=== PATIENT | female | born 1975 | race Caucasian/White ===

== ENCOUNTER 2016-10-01 09:45 | Outpatient (CLI) | payer BC ==
[2016-10-01] MEDS: DIPYRIDAMOLE 50 MG/10 ML VIAL IVP ONE (11:26)
== END 2016-10-01 09:46 | disposition home or self-care (01) ==
DX: R07.9 Chest pain, unspecified (principal); I21.3 ST elevation (STEMI) myocardial infarction of unspecified site; Z72.0 Tobacco use; I25.9 Chronic ischemic heart disease, unspecified; R94.39 Abnormal result of other cardiovascular function study
CPT/HCPCS: 78452; 93017; A9500; J1245

== ENCOUNTER 2016-10-05 16:21 | Emergency (ER) | payer BC ==
[2016-10-05] MEDS ORDERED: HEPARIN 5,000 UNIT/ML VIAL ONE (17:02)
[2016-10-05] MEDS ORDERED: METOPROLOL 5 MG/5 ML VIAL IVP ONE (17:02)
[2016-10-05] MEDS ORDERED: ASPIRIN CHEW 81 MG TABLET ONE ×2 (17:02→17:15)
[2016-10-05] MEDS ORDERED: HEPARIN 25,000 UNITS/500 ML 500 ML IV ONE (17:02)
[2016-10-05] MEDS ORDERED: NITROGLYCERIN 50 MG/250 ML 250 ML IV ONE (17:03)
--- NOTE | 2016-10-05 17:05 | ED Physician Documentation ---
PD HPI CHEST PAIN - Stated complaint Stated Complaint: CHEST PX - Chief complaint Chief Complaint: Cardiac - History obtained from History obtained from: Patient - History of Present Illness Timing - onset: Other (This is a 41-year-old woman who for the last month has been having intermittent sometimes exertional central chest pain radiating under the left breast associated with exertional shortness of breath. She's been evaluated and had a normal chest x-ray, then had a stress test on Wednesday, 3 days ago showing "moderate size anterior wall infarct extending anterolateral near the apex and anteroseptal near the mid ventricle to the base. Apical lateral patrick-infarct ischemia, left ventricular ejection fraction estimated at 42%. She has had chest pain as well today, contacted her doctor who referred her here.) Review of Systems Ten Systems: 10 systems reviewed and negative Constitutional: reports: Reviewed and negative Nose: reports: Reviewed and negative Cardiac: reports: Chest pain / pressure, Palpitations, Pedal edema. denies: Calf pain Respiratory: denies: Cough GI: denies: Abdominal Pain PD PAST MEDICAL HISTORY - Past Medical History Cardiovascular: None Respiratory: None Neuro: Peripheral neuropathy, Other Endocrine/Autoimmune: Other GI: GERD, Chronic diarrhea, Hemorrhoids, Other : None HEENT: None Psych: Anxiety, Claustrophobia Musculoskeletal: Osteoarthritis, Chronic back pain, Other Derm: Other drug resistant infections - Past Surgical History General: Cholecystectomy Ortho: Carpal Tunnel surgery, Spine surgery, Other - Present Medications Home Medications: Ambulatory Orders Medication Instructions Recorded Confirmed Cyclobenzaprine [Flexeril] 10 mg PO TID PRN 12/13/15 10/05/16 Diazepam 10 mg PO TID 12/13/15 10/05/16 Gabapentin 400 mg PO TID 12/13/15 10/05/16 raNITIdine [Zantac] 150 mg PO DAILY 12/13/15 10/05/16 Omeprazole 20 mg PO DAILY 04/14/16 10/05/16 - Allergies Allergies/Adverse Reactions: Allergies Allergy/AdvReac Type Severity Reaction Status Date / Time Penicillins Allergy Rash Verified 10/05/16 16:49 - Social History Smoking Status: Current every day smoker - Family History Family history: reports: Non contributory PD ED PE NORMAL - Vitals Vital signs reviewed: Yes (hypertensive, tachycardic) - General General: Alert and oriented X 3, No acute distress, Other (obese) - HEENT HEENT: PERRL, EOMI - Neck Neck: Supple, no meningeal sign, No bony TTP - Cardiac Cardiac: RRR, No murmur - Respiratory Respiratory: No respiratory distress, Clear bilaterally - Abdomen Abdomen: Soft, Non tender - Derm Derm: Normal color, Warm and dry - Extremities Extremities: No edema, No calf tenderness / cord - Neuro Neuro: Alert and oriented X 3, Normal speech - Psych Psych: Normal mood, Normal affect Results - Vitals Vitals: Vital Signs - 24 hr 10/05/16 10/05/16 10/05/16 16:26 16:49 17:32 Temperature 36.6 C Heart Rate 108 H 106 H 84 Respiratory 20 16 18 Rate Blood Pressure 144/96 H 143/106 H 129/89 H O2 Saturation 97 94 95 10/05/16 17:54 Temperature Heart Rate 79 Respiratory 20 Rate Blood Pressure 130/90 H O2 Saturation 93 Oxygen O2 Source Room air - EKG (time done) 1638 Rate: Rate (enter#) (101) Rhythm: Sinus tachycardia [place]: Normal Intervals: Normal MT QRS: Normal Ischemia: Normal ST segments Computer interpretation: Agree with computer - Labs Labs: Laboratory Tests 10/05/16 10/05/16 10/05/16 16:55 16:55 16:55 WBC 12.1 H RBC 5.15 Hgb 14.7 Hct 44.9 MCV 87.2 MCH 28.5 MCHC 32.6 RDW 14.1 Plt Count 379 MPV 7.8 L Neut # 7.6 H Lymph # 3.4 [place] # 0.7 Eos # 0.2 Baso # 0.2 H Absolute Nucleated RBC 0.01 Nucleated RBCs 0.1 Sodium 138 Potassium 4.0 Chloride 102 Carbon Dioxide 28 Anion Gap 8.0 BUN 14 Creatinine 1.0 Estimated GFR (MDRD) 62 L Glucose 103 H Calcium 9.6 Total Bilirubin 0.4 AST 25 ALT 37 Alkaline Phosphatase 64 Total Creatine Kinase 103 CK-MB (CK-2) 0.9 Troponin I < 0.04 Total Protein 7.8 Albumin 4.3 Globulin 3.5 Albumin/Globulin Ratio 1.2 Lipase 19 L Serum HCG, Qual 10/05/16 16:55 WBC RBC Hgb Hct MCV MCH MCHC RDW Plt Count MPV Neut # Lymph # [place] # Eos # Baso # Absolute Nucleated RBC Nucleated RBCs Sodium Potassium Chloride Carbon Dioxide Anion Gap BUN Creatinine Estimated GFR (MDRD) Glucose Calcium Total Bilirubin AST ALT Alkaline Phosphatase Total Creatine Kinase CK-MB (CK-2) Troponin I Total Protein Albumin Globulin Albumin/Globulin Ratio Lipase Serum HCG, Qual NEGATIVE PD MEDICAL DECISION MAKING - ED course ED course: 41-year-old woman with active new chest pain in the setting of a positive stress test on as an outpatient 3 days ago. Her EKG at this juncture is nonischemic. She was started on heparin drip, nitro drip, given IV beta blockers, aspirin her troponin at this juncture is negative. Spoke with Dr. Phelps in [place] at 558 p.m. who accepts in transfer. Recommends that she be transitioned off of the nitro drip to nitro paste given the negative troponin so that she doesn't have to go to the ICU. - Critical Care Time(min): 41 Time Includes: Direct patient care, Review records, Reassess patient, Document care, Coordinate care, Medical consult, Family consult for tx dec Data interpretation: Labs, Pulse ox Procedures included in critical care time: Peripheral IV Procedures excluded from critical care time: EKG Departure - Departure Disposition: 02 Transfer Acute Care Hosp Clinical Impression: Unstable angina Condition: Serious
[2016-10-05 17:12] LABS: BASOPHILS # (AUTO) 0.2 10^3/uL (0.0-0.1); BASOPHILS % (AUTO) 1.4 %; EOSINOPHILS # (AUTO) 0.2 10^3/uL (0.0-0.7); EOSINOPHILS % (AUTO) 1.9 %; HCT - HEMATOCRIT 44.9 % (37.0-47.0); HGB - HEMOGLOBIN 14.7 g/dL (12.0-16.0); LYMPHOCYTES # (AUTO) 3.4 10^3/uL (1.5-3.5); LYMPHOCYTES % (AUTO) 27.6 %; MEAN CORPUSCULAR HEMOGLOBIN 28.5 pg (27.0-31.0); MEAN CORPUSCULAR HGB CONC 32.6 g/dL (32.0-36.0); MEAN CORPUSCULAR VOLUME 87.2 fL (81.0-99.0); MEAN PLATELET VOLUME 7.8 fL (7.9-10.8); MONOCYTES # (AUTO) 0.7 10^3/uL (0.0-1.0); MONOCYTES % (AUTO) 6.1 %; NEUTROPHILS # (AUTO) 7.6 10^3/uL (1.5-6.6); NUCLEATED RED BLOOD CELLS AUTO 0.1 /100WBC; RED BLOOD COUNT 5.15 10^6/uL (4.20-5.40); RED CELL DISTRIBUTION WIDTH 14.1 % (12.0-15.0); UNCORRECTED WHITE BLOOD COUNT 12.1 x10^3/uL; WHITE BLOOD COUNT 12.1 x10^3/uL (4.8-10.8)
[2016-10-05] MEDS: ASPIRIN CHEW 81 MG TABLET PO STA (17:14)
[2016-10-05] MEDS: METOPROLOL 5 MG/5 ML VIAL IVP STA (17:15)
[2016-10-05] MEDS: NITROGLYCERIN 50 MG/250 ML 250 ML IV STA (17:19)
[2016-10-05] MEDS: HEPARIN 5,000 UNIT/ML VIAL IVP ONE (17:21)
[2016-10-05 17:24] LABS: ALBUMIN/GLOBULIN RATIO 1.2 (1.0-2.2); BILIRUBIN,TOTAL 0.4 mg/dL (0.2-1.0); CALCIUM 9.6 mg/dL (8.5-10.3); TOTAL PROTEIN 7.8 g/dL (6.7-8.2)
[2016-10-05] MEDS: HEPARIN 25,000 UNITS/500 ML 500 ML IV STA (17:24)
[2016-10-05 17:31] LABS: CREATINE KINASE MB 0.9 ng/mL (0.6-6.3); TROPONIN I < 0.04 ng/mL (<0.49)
[2016-10-05] MEDS ORDERED: MORPHINE 2 MG/ML SYRINGE ONE (17:41)
[2016-10-05] MEDS: MORPHINE 2 MG/ML SYRINGE IVP STA (17:44)
[2016-10-05] MEDS ORDERED: NITROGLYCERIN 2% PASTE TOP ONE (18:02)
[2016-10-05] MEDS: NITROGLYCERIN 2% PASTE TOP STA (18:04)
[2016-10-05] MEDS ORDERED: ACETAMINOPHEN 325 MG TABLET PO ONE (19:29)
[2016-10-05] MEDS: ACETAMINOPHEN 325 MG TABLET PO STA (19:30)
[2016-10-05 19:45] VITALS: BP 115/89
== END 2016-10-05 19:58 | disposition short-term general hospital (02) ==
LOC: ED 16:21
DX: I20.0 Unstable angina (principal); G62.9 Polyneuropathy, unspecified; K21.9 Gastro-esophageal reflux disease without esophagitis; M19.90 Unspecified osteoarthritis, unspecified site; F17.200 Nicotine dependence, unspecified, uncomplicated
CPT/HCPCS: 36415; 80053; 82550; 82553; 83690; 84484; 84703; 85025; 93005; 93010; 96365; 96366; 96368; 96375; 96376; 99285; 99291

== ENCOUNTER 2016-10-05 20:06 | Outpatient (CLI) | payer BC | END 2016-10-05 20:07 | disposition short-term general hospital (02) | DX: I20.0 Unstable angina (principal) | CPT/HCPCS: A0425; A0426 ==

== ENCOUNTER 2017-04-05 08:27 | Outpatient (CLI) | payer BC ==
--- NOTE | 2017-04-05 10:32 | Ultrasound Report ---
PELVIC ULTRASOUND: 04/05/2017 CLINICAL INDICATION: Pelvic pain. COMPARISON: 03/14/2016. TECHNIQUE: Transabdominal pelvic ultrasound performed for global evaluation. Transvaginal pelvic ultr asound performed for detailed evaluation. Real-time scanning performed and static images obtained. FINDINGS: The uterus is anteverted, measuring 8.9 x 5.2 x 3.5 cm. The endometrial echo complex measu res 10 mm. No focal myometrial lesion is present. The ovaries are normal, with the right measuring 2. 7 x 2.1 x 1.5 cm, and the left measuring 2.2 x 2.0 x 1.6 cm. No free fluid is present. IMPRESSION: NORMAL PELVIC ULTRASOUND. JOB #: [id number] EXT JOB #:[id number]
== END 2017-04-05 08:28 | disposition home or self-care (01) ==
LOC: DI 08:27
PROVIDERS: ATTEND Physician Assistant Medical
DX: R10.2 Pelvic and perineal pain (principal)
CPT/HCPCS: 76830; 76856

== ENCOUNTER 2017-04-06 08:57 | Outpatient (CLI) | payer BC | END 2017-04-06 08:58 | disposition home or self-care (01) | LOC: LAB.R 08:57 | PROVIDERS: ATTEND Family Medicine | DX: R10.2 Pelvic and perineal pain (principal) | CPT/HCPCS: 87480; 87491; 87510; 87591; 87660 ==

== ENCOUNTER 2017-04-07 10:41 | Outpatient (CLI) | payer BC ==
[2017-04-07] MEDS ORDERED: IOPAMIDOL-300 50 ML VIAL ONE ×2 (10:58)
[2017-04-07] MEDS ORDERED: IOPAMIDOL-300 100 ML VIAL ONE (10:58)
[2017-04-07] MEDS ORDERED: IOPAMIDOL-300 50 ML VIAL PO ONE (11:59)
[2017-04-07] MEDS ORDERED: IOPAMIDOL-300 100 ML VIAL IVP ONE (11:59)
--- NOTE | 2017-04-07 14:06 | CT Report ---
CT OF THE ABDOMEN AND PELVIS WITH CONTRAST: 04/07/2017 CLINICAL INDICATION: Abdominal pain. COMPARISON: Abdominal ultrasound of 04/28/2016. TECHNIQUE: Axial CT images of the abdomen and pelvis were obtained with 100 mL of Isovue-300 intraven ously as well as oral contrast. FINDINGS: Limited evaluation of the lung bases is unremarkable. ABDOMEN: The liver demonstrates a focus of decreased attenuation adjacent to the falciform ligament, compatible with focal fatty infiltration. Changes of cholecystectomy are present. No biliary dilatati on is seen. The spleen, pancreas, kidneys and right adrenal gland appear unremarkable. There is an ad enoma in the left adrenal gland, measuring 2.5 cm. No bowel dilatation, free gas, or free fluid is pr esent. No abdominal adenopathy is seen. PELVIS: Tubal ligation clips are noted in the pelvis. The pelvic organs appear unremarkable. No pelvi c adenopathy or free fluid is present. The appendix is seen in the right lower quadrant, and is igor l in caliber. The osseous structures demonstrate degenerative and postsurgical changes. IMPRESSION: CHANGES OF CHOLECYSTECTOMY. INCIDENTAL LEFT ADRENAL ADENOMA. NO EVIDENT ETIOLOGY FOR PAT IENT'S ABDOMINAL PAIN. In accordance with CT protocol optimization, one or more of the following dose reduction techniques w ere utilized for this exam: automated exposure control, adjustment of mA and/or KV based on patient size, or use of iterative reconstructive technique. JOB #: [id number] EXT JOB #:[id number]
== END 2017-04-07 10:42 | disposition home or self-care (01) ==
LOC: DI 10:41
PROVIDERS: ATTEND Family Medicine
DX: R10.9 Unspecified abdominal pain (principal); Z90.49 Acquired absence of other specified parts of digestive tract
CPT/HCPCS: 74177; Q9967

== ENCOUNTER 2017-04-13 15:05 | Emergency (ER) | payer BC ==
[2017-04-13 15:51] LABS: BILIRUBIN,URINE NEGATIVE (NEGATIVE)
[2017-04-13 15:52] LABS: UA CHARGE (STRIP ONLY) YES; UR CULTURE IF IND NOT INDICATED
[2017-04-13 15:53] LABS: HCG UR QUAL NEGATIVE
[2017-04-13] MEDS ORDERED: HYDROmorphone 1 MG/ML CARPUJECT IVP STA (16:32)
[2017-04-13] MEDS ORDERED: MAG HYDROX/AL HYDROX/SIMETH 30 ML UDC PO STA ×2 (16:32→18:00)
[2017-04-13] MEDS ORDERED: ONDANSETRON 4 MG/2 ML VIAL IVP STA (16:32)
[2017-04-13] MEDS ORDERED: SODIUM CHLORIDE 0.9% 1,000 ML IV ONE (16:32)
[2017-04-13] MEDS ORDERED: LIDOCAINE VISCOUS 2% 15 ML UDC MM STA ×2 (16:32→18:00)
--- NOTE | 2017-04-13 16:34 | ED Physician Documentation ---
PD HPI BACK PAIN - Stated complaint Stated Complaint: BACK PX - Chief complaint Chief Complaint: Back Pain - History obtained from History obtained from: Patient - History of Present Illness Timing - onset: Other (This is a 42-year-old woman with history of remote cholecystectomy and spine surgery, she is recently been seen for lower abdominal pain, had a CAT scan or days ago which was normal with the exception of a left adrenal adenoma, an ultrasound 2 days prior to that of her pelvis which was normal. She was diagnosed with PID and started on doxycycline approx 5 days ago which she had a reaction including burning in her rash 2. She has not been on antibiotics since. Now is upper abdominal pain in the epigastrium and left upper quadrant radiating through to the back that is worse when she eats. It does not feel like prior musculoskeletal back pain. She is nauseous but has not vomited. There is no associated fever or chill.) Review of Systems Ten Systems: 10 systems reviewed and negative Constitutional: denies: Fever, Chills Cardiac: denies: Chest pain / pressure, Palpitations Respiratory: denies: Dyspnea, Cough GI: reports: Abdominal Pain, Nausea. denies: Vomiting, Constipation, Diarrhea PD PAST MEDICAL HISTORY - Past Medical History Cardiovascular: None Respiratory: None Neuro: Peripheral neuropathy, Other Endocrine/Autoimmune: Other GI: GERD, Chronic diarrhea, Hemorrhoids, Other : None HEENT: None Psych: Anxiety, Claustrophobia Musculoskeletal: Osteoarthritis, Chronic back pain, Other Derm: Other drug resistant infections - Past Surgical History General: Cholecystectomy Ortho: Carpal Tunnel surgery, Spine surgery, Other Cardiovascular: Other - Present Medications Home Medications: Ambulatory Orders Medication Instructions Recorded Confirmed Cyclobenzaprine [Flexeril] 10 mg PO TID PRN 12/13/15 04/13/17 raNITIdine [Zantac] 150 mg PO DAILY 12/13/15 04/13/17 Omeprazole 20 mg PO DAILY 04/14/16 04/13/17 Ciprofloxacin HCl [Cipro] 500 mg PO BID #14 tablet 04/13/17 HYDROcod/ACETAM 5/325 [[place] 5/325] 1 - 2 ea PO Q6H PRN #15 tablet 04/13/17 Omeprazole [PriLOSEC] 20 mg PO BID #60 capsule 04/13/17 Sucralfate [Carafate] 1 gm PO ACHS #90 tablet 04/13/17 - Allergies Allergies/Adverse Reactions: Allergies Allergy/AdvReac Type Severity Reaction Status Date / Time doxycycline Allergy Rash Verified 04/13/17 15:22 Penicillins Allergy Rash Verified 04/13/17 15:22 - Social History Does the pt smoke?: Yes Smoking Status: Current every day smoker Does the pt drink ETOH?: No Does the pt have substance abuse?: Yes - Immunizations Immunizations are current?: Yes - POLST Patient has POLST: No PD ED PE NORMAL - Vitals Vital signs reviewed: Yes - General General: Alert and oriented X 3, No acute distress - Cardiac Cardiac: RRR, No murmur - Respiratory Respiratory: No respiratory distress, Clear bilaterally - Abdomen Abdomen: Other (Mild upper abdominal tenderness and bilateral flank tenderness without surgical signs.) - Derm Derm: No rash - Extremities Extremities: No edema, No calf tenderness / cord - Neuro Neuro: Alert and oriented X 3, Normal speech - Psych Psych: Normal mood, Normal affect Results - Vitals Vitals: Vital Signs - 24 hr 04/13/17 04/13/17 15:19 17:26 Temperature 36.9 C 36.9 C Heart Rate 126 H 79 Respiratory 20 12 Rate Blood Pressure 160/110 H 133/95 H O2 Saturation 97 98 Oxygen O2 Source Room air - Labs Labs: Laboratory Tests 04/13/17 04/13/17 04/13/17 15:40 15:40 17:00 WBC 10.7 RBC 5.36 Hgb 15.4 Hct 45.7 MCV 85.3 MCH 28.7 MCHC 33.7 RDW 14.2 Plt Count 413 MPV 7.1 L Neut # 6.4 Lymph # 3.1 [place] # 0.9 Eos # 0.2 Baso # 0.1 Absolute Nucleated RBC 0.00 Nucleated RBC % 0.0 Sodium Potassium Chloride Carbon Dioxide Anion Gap BUN Creatinine Estimated GFR (MDRD) Glucose Calcium Total Bilirubin AST ALT Alkaline Phosphatase Total Protein Albumin Globulin Albumin/Globulin Ratio Lipase Urine Color YELLOW Urine Clarity CLEAR Urine pH 6.0 Ur Specific [place] <=1.005 <=1.005 Urine Protein NEGATIVE Urine Glucose (UA) NEGATIVE Urine Ketones NEGATIVE Urine Occult Blood NEGATIVE Urine Nitrite NEGATIVE Urine Bilirubin NEGATIVE Urine Urobilinogen 0.2 (NORMAL) Ur Leukocyte Esterase NEGATIVE Ur Microscopic Review NOT INDICATED Urine Culture Comments NOT INDICATED Urine HCG, Qual NEGATIVE H. pylori IgG Antibody 04/13/17 04/13/17 17:00 17:00 WBC RBC Hgb Hct MCV MCH MCHC RDW Plt Count MPV Neut # Lymph # [place] # Eos # Baso # Absolute Nucleated RBC Nucleated RBC % Sodium 141 Potassium 3.5 Chloride 101 Carbon Dioxide 28 Anion Gap 12.0 BUN 7 Creatinine 0.8 Estimated GFR (MDRD) 79 L Glucose 94 Calcium 10.1 Total Bilirubin 0.3 AST 21 ALT 24 Alkaline Phosphatase 68 Total Protein 8.1 Albumin 4.3 Globulin 3.8 Albumin/Globulin Ratio 1.1 Lipase 26 Urine Color Urine Clarity Urine pH Ur Specific [place] Urine Protein Urine Glucose (UA) Urine Ketones Urine Occult Blood Urine Nitrite Urine Bilirubin Urine Urobilinogen Ur Leukocyte Esterase Ur Microscopic Review Urine Culture Comments Urine HCG, Qual H. pylori IgG Antibody Negative PD MEDICAL DECISION MAKING - ED course ED course: 42-year-old woman with incompletely treated PID now presents with upper abdominal pain radiating to the back, but a benign abdominal examination. She recently had workup including pelvic ultrasound and CT without relevant findings. Blood work was done today, also unremarkable. She had complete relief with a GI cocktail suggesting probably a posterior gastric ulcer causing her complaints. Departure - Departure Disposition: Home, Self Care Clinical Impression: Back pain Qualifiers: Back pain location: thoracic back pain Chronicity: acute Back pain laterality: bilateral Qualified Code(s): M54.6 - Pain in thoracic spine Gastric ulcer Qualifiers: Gastric ulcer chronicity: acute Gastric ulcer complication status: without hemorrhage or perforation Qualified Code(s): K25.3 - Acute gastric ulcer without hemorrhage or perforation Condition: Good Record reviewed to determine appropriate education?: Yes Instructions: ED Abdominal Pain Unkn Cause Prescriptions: Ciprofloxacin HCl [Cipro] 500 mg PO BID #14 tablet HYDROcod/ACETAM 5/325 [[place] 5/325] 1 - 2 ea PO Q6H PRN #15 tablet PRN Reason: Pain Omeprazole [PriLOSEC] 20 mg PO BID #60 capsule Sucralfate [Carafate] 1 gm PO ACHS #90 tablet Comments: Call your doctor to arrange a follow-up appointment, make the next available appointment. In the interim, return anytime if worse or if new symptoms develop. Your blood pressure was elevated today on check into the emergency department. This does not mean that you have hypertension, it is a common phenomenon to come to the emergency department and have elevated blood pressure. I recommend that she see your primary care physician within the week to have it rechecked when you are feeling better.
[2017-04-13 17:10] LABS: BASOPHILS # (AUTO) 0.1 10^3/uL (0.0-0.1); BASOPHILS % (AUTO) 1.3 %; EOSINOPHILS # (AUTO) 0.2 10^3/uL (0.0-0.7); EOSINOPHILS % (AUTO) 1.7 %; HCT - HEMATOCRIT 45.7 % (37.0-47.0); HGB - HEMOGLOBIN 15.4 g/dL (12.0-16.0); LYMPHOCYTES # (AUTO) 3.1 10^3/uL (1.5-3.5); LYMPHOCYTES % (AUTO) 28.7 %; MEAN CORPUSCULAR HEMOGLOBIN 28.7 pg (27.0-31.0); MEAN CORPUSCULAR HGB CONC 33.7 g/dL (32.0-36.0); MEAN CORPUSCULAR VOLUME 85.3 fL (81.0-99.0); MEAN PLATELET VOLUME 7.1 fL (7.9-10.8); MONOCYTES # (AUTO) 0.9 10^3/uL (0.0-1.0); MONOCYTES % (AUTO) 8.3 %; NEUTROPHILS # (AUTO) 6.4 10^3/uL (1.5-6.6); RED BLOOD COUNT 5.36 10^6/uL (4.20-5.40); RED CELL DISTRIBUTION WIDTH 14.2 % (12.0-15.0); UNCORRECTED WHITE BLOOD COUNT 10.7 x10^3/uL; WHITE BLOOD COUNT 10.7 x10^3/uL (4.8-10.8)
[2017-04-13] MEDS ORDERED: ONDANSETRON 4 MG/2 ML VIAL ONE (17:13)
[2017-04-13] MEDS ORDERED: HYDROmorphone 1 MG/ML SYRINGE ONE (17:13)
[2017-04-13] MEDS ORDERED: MAG HYDROX/AL HYDROX/SIMETH 30 ML UDC ONE ×3 (17:14→18:08)
[2017-04-13] MEDS ORDERED: LIDOCAINE VISCOUS 2% 15 ML UDC MM ONE ×3 (17:14→18:08)
[2017-04-13] MEDS ORDERED: SODIUM CHLORIDE FLUSH 0.9% 10 ML SYRINGE IVP ONE (17:14)
[2017-04-13 17:30] LABS: ALBUMIN/GLOBULIN RATIO 1.1 (1.0-2.2); BILIRUBIN,TOTAL 0.3 mg/dL (0.2-1.0); CALCIUM 10.1 mg/dL (8.5-10.3); CREATININE 0.8 mg/dL (0.4-1.0); POTASSIUM 3.5 mmol/L (3.5-5.0); TOTAL PROTEIN 8.1 g/dL (6.7-8.2)
[2017-04-13 17:43] LABS: H. PYLORI IGG ANTIBODY Negative (Negative); HPYLORI NEG QC Negative (Negative); HPYLORI POS QC POSITIVE (Positive)
[2017-04-13 18:26] VITALS: BP 131/68
== END 2017-04-13 18:38 | disposition home or self-care (01) ==
LOC: ED 15:05
DX: K25.3 Acute gastric ulcer without hemorrhage or perforation (principal); M54.6 Pain in thoracic spine; R03.0 Elevated blood-pressure reading, without diagnosis of hypertension; G62.9 Polyneuropathy, unspecified; K21.9 Gastro-esophageal reflux disease without esophagitis; M19.90 Unspecified osteoarthritis, unspecified site; F17.200 Nicotine dependence, unspecified, uncomplicated
CPT/HCPCS: 36415; 80053; 81003; 81025; 83690; 85025; 87339; 96374; 96375; 99283; 99284; A9270; J1170; 81001; 87086

== ENCOUNTER 2017-05-19 09:07 | Outpatient (CLI) | payer BC ==
--- NOTE | 2017-05-19 12:54 | XRAY Report ---
UPPER GI WITH SMALL BOWEL FOLLOWTHROUGH: 05/19/2017 CLINICAL INDICATION: Reflux, pain. FINDINGS: Initial front sight attacher view of the abdomen demonstrates a normal bowel gas pattern. Postoperative changes of cholecystectomy are noted. Upper GI was performed, followed by small bowel followthrough. The distal esophagus is normal in blanca iber and contractility. No esophageal ulceration, mass lesion, or stricturing is present. Reflux wa s visualized during the course of the examination. The stomach demonstrates a normal fold pattern. No hiatal hernia was visualized. The duodenal cap distends normally. The duodenal C loop is unremar kable. The jejunum and ileum demonstrate normal fold patterns. No abnormal dilatation, separation, or stric turing of small bowel loops is identified. Oral contrast reached the ascending colon at 90 minutes. The terminal ileum is unremarkable. IMPRESSION: 1. GASTROESOPHAGEAL REFLUX. 2. NO EVIDENCE OF ULCERATION OR MASS LESION. 3. NORMAL SMALL BOWEL FOLLOWTHROUGH. FLUOROSCOPY TIME: 3 minutes, 45 seconds; 30 spot images obtained. JOB #: [id number] EXT JOB #:[id number]
[2017-05-20] MEDS ORDERED: BARIUM SULFATE 176 GM BOTTLE PO ONE (08:06)
[2017-05-20] MEDS ORDERED: SIMETHICONE/SOD BICARB/CIT AC 1 EACH PACKET PO ONE (08:06)
[2017-05-20] MEDS ORDERED: BARIUM SULFATE 135 ML BOTTLE PO ONE (08:06)
== END 2017-05-19 09:08 | disposition home or self-care (01) ==
LOC: DI 09:07
PROVIDERS: ATTEND Family Medicine
DX: K21.9 Gastro-esophageal reflux disease without esophagitis (principal)
CPT/HCPCS: 74249

== ENCOUNTER 2017-05-22 10:41 | Outpatient (CLI) | payer BC ==
--- NOTE | 2017-05-22 22:43 | CT Preliminary Report ---
Exam: CT IACS W/O IMPRESSION: Normal temporal bone CT. [facility] SITE ID: [id number]
--- NOTE | 2017-05-22 22:51 | CT Report ---
EXAM: CT TEMPORAL BONE EXAM DATE: 05/22/2017 10:53 AM. CLINICAL HISTORY: Right-sided mastoid pain. COMPARISON: Facial bone CT from 05/07/2016. TECHNIQUE: Routine axial CT imaging performed through the temporal bones. Reconstructions: Coronal an d sagittal bone windows. IV contrast: None. In accordance with CT protocol optimization, one or more of the following dose reduction techniques w ere utilized for this exam: automated exposure control, adjustment of mA and/or KV based on patient s ize, or use of iterative reconstructive technique. FINDINGS: RIGHT: External auditory canal: Patent without significant filling defect. Middle ear and ossicles: Tympanic membrane is normal. The middle ear, including Prussak's space, is c lear. The scutum and ossicles are intact without evidence of bony erosion or dislocation. Cochlea and vestibular apparatus: The cochlea and vestibular apparatus demonstrate normal morphology. No evidence of semicircular canal dehiscence. The vestibular aqueduct is normal size. Internal auditory canal: Patent without evidence of mass lesion. Mastoid air cells: Clear. Other: The course of the facial nerve is normal. LEFT: External auditory canal: Patent without significant filling defect. Middle ear and ossicles: Tympanic membrane is normal. The middle ear, including Prussak's space, is c lear. The scutum and ossicles are intact without evidence of bony erosion or dislocation. Cochlea and vestibular apparatus: The cochlea and vestibular apparatus demonstrate normal morphology. No evidence of semicircular canal dehiscence. The vestibular aqueduct is normal size. Internal auditory canal: Patent without evidence of mass lesion. Mastoid air cells: Clear. Other: The course of the facial nerve is normal. IMPRESSION: Normal temporal bone CT. [facility] Referring Provider Line: [phone] SITE ID: [id number]
== END 2017-05-22 10:42 | disposition home or self-care (01) ==
LOC: DI 10:41
PROVIDERS: ATTEND Family Medicine
DX: H92.01 Otalgia, right ear (principal)
CPT/HCPCS: 70480

== ENCOUNTER 2018-01-12 07:49 | Outpatient (CLI) | payer BC ==
--- NOTE | 2018-01-12 17:54 | MRI Report ---
Procedure Date: 01/12/2018 Accession Number: [id number] / [id number] Procedure: MRI - Brain W/O CPT Code: FULL RESULT: EXAM: MRI BRAIN WITHOUT CONTRAST. INDICATION: 42-year-old female with headaches x1 year. Please assess. TECHNIQUE: 1. T1 sagittal and fat-saturated T2 coronal. 2. Axial T1 3-D, FLAIR, T2, T2 star and DWI. COMPARISON: None. FINDINGS: Ventricular size is normal. A small T2 hyperintensity is identified in the deep white matter, mid right frontal lobe (image 17 of series 701), of uncertain etiology but of doubtful clinical significance. Signal intensity of cortex and white matter is otherwise normal. The cerebellar tonsils are low-lying and project into the foramen magnum. However, there is no descent below the plane of foramen magnum and no evidence of a Chiari I malformation. Flow voids are demonstrated in the main intracranial arteries. No abnormal diffusion restriction is demonstrated. No evidence of acute or chronic hemorrhage on T2*GRE sequence. No abnormal extra-axial fluid collection. No mass effect or midline shift. Limited assessment of the orbits reveals no gross pathology. The paranasal sinuses are essentially clear. No mastoid or middle ear effusion is demonstrated. IMPRESSION: Unremarkable, unenhanced brain MRI. In particular, no evidence of hemorrhage, space-occupying mass lesion or other potential cause for headaches.
== END 2018-01-12 07:50 | disposition home or self-care (01) ==
LOC: DI 07:49
PROVIDERS: ATTEND Family Medicine
DX: R51 Headache (principal)
CPT/HCPCS: 70551

== ENCOUNTER 2018-09-22 15:36 | Emergency (ER) | payer BC ==
[2018-09-22] MEDS ORDERED: KETOROLAC 15 MG/ML VIAL IVP STA (16:36)
[2018-09-22] MEDS ORDERED: METOCLOPRAMIDE 10 MG/2 ML VIAL IVP STA (16:36)
[2018-09-22] MEDS ORDERED: hydrOXYzine PAMOATE 25 MG CAPSULE PO STA (16:36)
[2018-09-22] MEDS ORDERED: SODIUM CHLORIDE 0.9% 1,000 ML IV ONE (16:36)
--- NOTE | 2018-09-22 16:45 | ED Physician Documentation ---
History of Present Illness - Stated complaint Stated Complaint: R FACIAL NUMBNESS - Chief complaint Chief Complaint: Neuro - Additonal information Additional information: 43-year-old female who was recently treated for a sinus infection presents to the emergency department with ongoing pressure in her right here and pressure behind her right ear. The patient reports a headache associated with this. The patient denies vision changes, facial numbness, upper extremity or lower extremity numbness. The patient denies motor or sensory changes. The patient denies confusion, speech difficulty or any other neurologic changes. No other associated symptoms. Review of Systems Constitutional: denies: Fever, Chills, Fatigue Eyes: denies: Loss of vision, Discharge Ears: reports: Ear pain, Tinnitus/ringing. denies: Drainage/discharge Nose: reports: Congestion Throat: denies: Dental pain / toothache, Sore throat Cardiac: denies: Chest pain / pressure Respiratory: denies: Dyspnea : denies: Hematuria Skin: denies: Rash, Lesions Neurologic: denies: Generalized weakness PD PAST MEDICAL HISTORY - Past Medical History Cardiovascular: None Respiratory: None Endocrine/Autoimmune: Other GI: GERD, Chronic diarrhea, Hemorrhoids, Other : None HEENT: None Psych: Anxiety, Claustrophobia Musculoskeletal: Osteoarthritis, Chronic back pain, Other Derm: Other drug resistant infections - Past Surgical History Past Surgical History: Yes General: Cholecystectomy Ortho: Carpal Tunnel surgery, Spine surgery, Other Cardiovascular: Other - Present Medications Home Medications: Ambulatory Orders Medication Instructions Recorded Confirmed raNITIdine [Zantac] 150 mg PO DAILY 12/13/15 09/22/18 Duloxetine HCl [Cymbalta] 60 mg PO DAILY 09/22/18 09/22/18 hydrOXYzine PAMOATE [Vistaril] 25 mg PO Q6H PRN #30 capsule 09/22/18 - Allergies Allergies/Adverse Reactions: Allergies Allergy/AdvReac Type Severity Reaction Status Date / Time doxycycline Allergy Rash Verified 04/13/17 15:22 Penicillins Allergy Rash Verified 04/13/17 15:22 sulindac Allergy Cramps Verified 09/22/18 15:46 - Social History Does the pt smoke?: Yes Smoking Status: Current every day smoker Does the pt drink ETOH?: No Does the pt have substance abuse?: Yes - Immunizations Immunizations are current?: Yes - POLST Patient has POLST: No PD ED PE NORMAL - General General: Alert and oriented X 3, No acute distress - HEENT HEENT: Atraumatic, PERRL, EOMI, Other (The left ear is unremarkable, the right ear there is fluid in the middle ear but there is no other signs of an acute infectious process. The TM is normal-appearing, there is no loss of landmarks, no bulging.The patient has no tenderness behind the mastoid or redness or mastoid changes) - Neck Neck: Other - Cardiac Cardiac: RRR, Strong equal pulses - Respiratory Respiratory: No respiratory distress - Derm Derm: Normal color - Extremities Extremities: No deformity - Neuro Neuro: Alert and oriented X 3, knitted goods shaper 2-12 intact, No motor deficit, No sensory deficit, Normal speech - Psych Psych: Normal mood Results - Vitals Vitals: Vital Signs - 24 hr 09/22/18 09/22/18 15:42 15:53 Temperature 36.8 C Heart Rate 109 H Respiratory 20 18 Rate Blood Pressure 175/105 H O2 Saturation 97 Oxygen O2 Source Room air - Labs Labs: Laboratory Tests 09/22/18 09/22/18 16:45 16:45 Sodium 143 Potassium 3.6 Chloride 106 Carbon Dioxide 27 Anion Gap 10.0 BUN 10 Creatinine 0.8 Estimated GFR (MDRD) 79 L Glucose 93 Calcium 9.2 Total Bilirubin 0.3 AST 13 ALT 12 Alkaline Phosphatase 71 Total Protein 7.8 Albumin 4.3 Globulin 3.5 Albumin/Globulin Ratio 1.2 Lipase 29 Urine Color LIGHT YELLOW Urine Clarity CLEAR Urine pH 6.5 Ur Specific [place] <=1.005 Urine Protein NEGATIVE Urine Glucose (UA) NEGATIVE Urine Ketones NEGATIVE Urine Occult Blood NEGATIVE Urine Nitrite NEGATIVE Urine Bilirubin NEGATIVE Urine Urobilinogen 0.2 (NORMAL) Ur Leukocyte Esterase NEGATIVE Ur Microscopic Review NOT INDICATED Urine Culture Comments NOT INDICATED - Rads (name of study) CT head Radiology: Final report received, See rad report (IMPRESSION: No acute intracranial CT abnormality. ) PD MEDICAL DECISION MAKING - ED course ED course: Presently, the patient appears appropriate for discharge and ongoing outpatient management. The pressure may be associated to the fluid in the middle ear. There is no signs of an acute infectious process at this time. The patient appears appropriate for follow-up with primary care. On reevaluation the patient is resting comfortably and appears to be in no acute distress. The patient has no clinical findings to suggest subarachnoid hemorrhage or meningitis and currently a lumbar puncture would be of little utility. I discussed warning signs and recommended returning for any worsening or any concerns Departure - Departure Disposition: 01 Home, Self Care Clinical Impression: Pressure in head Middle ear effusion Qualifiers: Laterality: unspecified laterality Qualified Code(s): H65.90 - Unspecified nonsuppurative otitis media, unspecified ear Condition: Good Instructions: ED Cephalgia Unspecified Follow-Up: Jayleen Rendon MD [Primary Care Provider] - Within 1 week (If your symptoms are not improving you may need a referral to ENT to further assess your symptoms) Prescriptions: hydrOXYzine PAMOATE [Vistaril] 25 mg PO Q6H PRN #30 capsule PRN Reason: Cold Symptons Comments: Please return to the emergency department for worsening symptoms or any concerns
[2018-09-22 16:58] LABS: BILIRUBIN,URINE NEGATIVE (NEGATIVE); GLUCOSE, URINE (UA) NEGATIVE (NEGATIVE); KETONES,URINE (UA) NEGATIVE (NEGATIVE); LEUKOCYTE ESTERASE, URINE NEGATIVE (NEGATIVE); NITRITE,URINE NEGATIVE (NEGATIVE); OCCULT BLOOD,URINE NEGATIVE (NEGATIVE); PH,URINE 6.5 PH (5.0-7.5); PROTEIN,URINE NEGATIVE (NEGATIVE); UROBILINOGEN,URINE 0.2 (NORMAL) E.U./dL (NORMAL)
[2018-09-22 17:00] LABS: CLARITY,URINE CLEAR (CLEAR)
[2018-09-22 17:07] LABS: ALBUMIN 4.3 g/dL (3.2-5.5); ALBUMIN/GLOBULIN RATIO 1.2 (1.0-2.2); BILIRUBIN,TOTAL 0.3 mg/dL (0.2-1.0); CALCIUM 9.2 mg/dL (8.5-10.3); CREATININE 0.8 mg/dL (0.4-1.0); TOTAL PROTEIN 7.8 g/dL (6.7-8.2)
--- NOTE | 2018-09-22 17:12 | CT Report ---
Reason: headache Procedure Date: 09/22/2018 Accession Number: [id number] / [id number] Procedure: CT - HEAD WO CPT Code: FULL RESULT: EXAM: CT HEAD EXAM DATE: 09/22/2018 04:50 PM. CLINICAL HISTORY: Headache. COMPARISON: IACS W/O 05/22/2017 10:52 AM. TECHNIQUE: Multiaxial CT images were obtained from the foramen magnum to the vertex. Reformats: Sagittal and coronal. IV contrast: None. In accordance with CT protocol optimization, one or more of the following dose reduction techniques were utilized for this exam: automated exposure control, adjustment of mA and/or KV based on patient size, or use of iterative reconstructive technique. FINDINGS: Parenchyma: No intraparenchymal hemorrhage. No evidence of mass, midline shift, or CT findings of infarction. Villafana-white differentiation is distinct. Extraaxial Spaces: Normal for age. No subdural or epidural collections identified. Ventricles: Normal in size and position. Sinuses and Orbits: Imaged paranasal sinuses, orbits, and mastoids show no significant abnormality. Bones: No evidence of fracture or calvarial defect. Other: None. IMPRESSION: No acute intracranial CT abnormality. RADIA
[2018-09-22 17:45] VITALS: BP 138/80
== END 2018-09-22 17:57 | disposition home or self-care (01) ==
LOC: ED 15:36
DX: H74.8X3 Other specified disorders of middle ear and mastoid, bilateral (principal); F17.200 Nicotine dependence, unspecified, uncomplicated
CPT/HCPCS: 36415; 70450; 80053; 81003; 83690; 96374; 99283; A9270; J2765; 81001; 87086

== ENCOUNTER 2018-09-26 21:02 | Emergency (ER) | payer BC ==
[2018-09-26] MEDS ORDERED: LORazepam 2 MG/ML VIAL IVP STA (21:52)
[2018-09-26] MEDS ORDERED: HALOPERIDOL 5 MG/ML VIAL IVP ONE (21:52)
[2018-09-26] MEDS ORDERED: KETOROLAC 15 MG/ML VIAL IVP STA (21:52)
[2018-09-26] MEDS ORDERED: ACETAMINOPHEN 500 MG TABLET PO STA (21:53)
--- NOTE | 2018-09-26 22:58 | XRAY Report ---
Reason: chest pain Procedure Date: 09/26/2018 Accession Number: [id number] / [id number] Procedure: XR - Chest 1 View X-Ray CPT Code: 22059 FULL RESULT: EXAM: CHEST RADIOGRAPHY EXAM DATE: 09/26/2018 10:15 PM. CLINICAL HISTORY: Chest pain. COMPARISON: CHEST 2 VIEW PA/LAT 07/31/2016 8:32 AM. TECHNIQUE: 1 view. FINDINGS: Lungs/Pleura: No focal opacities evident. No pleural effusion. No pneumothorax. Mediastinum: Within exam limitations, the cardiomediastinal contour is normal. Other: None. IMPRESSION: Normal single view chest. RADIA
--- NOTE | 2018-09-26 23:58 | ED Physician Documentation ---
PD HPI HEADACHE - Stated complaint Stated Complaint: ANXIETY - Chief complaint Chief Complaint: General - History obtained from History obtained from: Patient - History of Present Illness Timing - onset: How many hours ago (2) Timing - onset during: Light activity Timing - duration: Hours Timing - details: Gradual onset Pain level max: 3 Pain level now: 3 Severity Comments: mild Worst headache ever?: Worst headache ever? (No) Location: Right Quality: Throbbing Associated symptoms: Nausea Improved by: Rest, Dark room Worsened by: Light Contributing factors: Other (marijuana) - Additional information Additional information: 43-year-old female with history of migraines complains of headache and anxiety after using marijuana. Headache was gradual in onset and not worse of life with symptoms that are somewhat different than her typical migraines.Headache is not sudden onset not worst of life. Review of Systems Ten Systems: 10 systems reviewed and negative Constitutional: reports: Reviewed and negative Eyes: reports: Reviewed and negative Ears: reports: Reviewed and negative Nose: reports: Reviewed and negative Throat: reports: Reviewed and negative Cardiac: reports: Reviewed and negative Respiratory: reports: Reviewed and negative GI: reports: Reviewed and negative : reports: Reviewed and negative Skin: reports: Reviewed and negative Musculoskeletal: reports: Reviewed and negative Neurologic: reports: Reviewed and negative Psychiatric: reports: Reviewed and negative Endocrine: reports: Reviewed and negative Immunocompromised: reports: Reviewed and negative PD PAST MEDICAL HISTORY - Past Medical History Cardiovascular: None Respiratory: None Endocrine/Autoimmune: Other GI: GERD, Chronic diarrhea, Hemorrhoids, Other : None HEENT: None Psych: Anxiety, Claustrophobia Musculoskeletal: Osteoarthritis, Chronic back pain, Other Derm: Other drug resistant infections Other Past Medical History: Reviewed and not pertinent - Past Surgical History Past Surgical History: Yes General: Cholecystectomy Ortho: Carpal Tunnel surgery, Spine surgery, Other Cardiovascular: Other Other past surgical history: Reviewed and not pertinent - Present Medications Home Medications: Ambulatory Orders Medication Instructions Recorded Confirmed raNITIdine [Zantac] 150 mg PO DAILY 12/13/15 09/22/18 Duloxetine HCl [Cymbalta] 60 mg PO DAILY 09/22/18 09/22/18 hydrOXYzine PAMOATE [Vistaril] 25 mg PO Q6H PRN #30 capsule 09/22/18 - Allergies Allergies/Adverse Reactions: Allergies Allergy/AdvReac Type Severity Reaction Status Date / Time doxycycline Allergy Rash Verified 03/25/19 21:12 Penicillins Allergy Rash Verified 09/26/18 21:12 sulindac Allergy Cramps Verified 09/26/18 21:12 - Living Situation Living Situation: reports: With family Living Arrangement: reports: At home - Social History Does the pt smoke?: Yes Smoking Status: Current every day smoker Does the pt drink ETOH?: No Does the pt have substance abuse?: Yes - Family History Family history: reports: Other (Reviewed and not pertinent) - Immunizations Immunizations are current?: Yes - POLST Patient has POLST: No PD ED PE NORMAL - Vitals Vital signs reviewed: Yes - General General: Alert and oriented X 3, No acute distress - HEENT HEENT: PERRL - Neck Neck: Supple, no meningeal sign - Cardiac Cardiac: RRR, No murmur - Respiratory Respiratory: Clear bilaterally - Abdomen Abdomen: Normal bowel sounds, Soft, Non tender, Non distended - Derm Derm: Warm and dry - Extremities Extremities: No deformity - Neuro Neuro: Alert and oriented X 3 - Psych Psych: Normal mood, Normal affect Results - Vitals Vitals: Vital Signs - 24 hr 09/26/18 21:06 Temperature 36.6 C Heart Rate 117 H Respiratory 17 Rate Blood Pressure 173/97 H O2 Saturation 100 Oxygen O2 Source Room air PD MEDICAL DECISION MAKING - ED course Complexity details: reviewed results, re-evaluated patient, considered differential, d/w patient, d/w family ED course: 43-year-old female with gradual onset mild headache after smoking marijuana. Symptoms resolved with Haldol, Ativan, Tylenol, Toradol, IV fluids. Discharge with primary care follow-up. No clinical indication of subarachnoid hemorrhage or meningitis. Departure - Departure Disposition: 01 Home, Self Care Clinical Impression: Headache Qualifiers: Headache type: unspecified Headache chronicity pattern: acute headache Intractability: not intractable Qualified Code(s): R51 - Headache Condition: Stable Instructions: ED Headache Migraine Follow-Up: Jayleen Rendon DO [Primary Care Provider] - Comments: Follow-up with PCP within 24 hours. Return with worsening symptoms.
[2018-09-27 00:09] VITALS: BP 137/85
== END 2018-09-27 01:10 | disposition home or self-care (01) ==
LOC: ED 21:02
DX: R51 Headache (principal); F12.988 Cannabis use, unspecified with other cannabis-induced disorder; F17.200 Nicotine dependence, unspecified, uncomplicated
CPT/HCPCS: 71045; 87275; 87276; 96374; 99283

== ENCOUNTER 2018-09-30 10:27 | Outpatient (CLI) | payer BC ==
--- NOTE | 2018-09-30 13:33 | XRAY Report ---
Reason: NECK PAIN, CHRONIC Procedure Date: 09/30/2018 Accession Number: [id number] / [id number] Procedure: WCP - Cervical Spine 2 View CPT Code: FULL RESULT: EXAM: CERVICAL SPINE RADIOGRAPHY EXAM DATE: 09/30/2018 10:41 AM. CLINICAL HISTORY: Neck pain, chronic. COMPARISONS: CERVICAL SPINE COMPLETE 08/16/2017 11:05 AM. TECHNIQUE: 3 views. FINDINGS: Alignment: Normal. No spondylolisthesis or scoliosis. Bones: The cervical vertebral bodies and posterior elements are well visualized from the skull base through C7. No fractures or bone lesions. Disks: Normal. Disk heights are maintained. Facets: There is minimal mid cervical lateral mass hypertrophy. No significant facet degenerative disease. Soft Tissues: Normal. No prevertebral soft tissue swelling. The visualized lung apices are clear. IMPRESSION: Lateral mass predominant minimal degenerative changes. RADIA
== END 2018-09-30 10:28 | disposition home or self-care (01) ==
LOC: DI.WCP 10:27
PROVIDERS: ATTEND Nurse Practitioner
DX: M47.812 Spondylosis without myelopathy or radiculopathy, cervical region (principal)
CPT/HCPCS: 72040

== ENCOUNTER 2020-03-12 13:35 | Outpatient (CLI) | payer BC ==
[2020-03-12] MEDS ORDERED: IOVERSOL 320 50 ML VIAL ONE (13:48)
[2020-03-12] MEDS ORDERED: IOVERSOL 320 100 ML VIAL IVP ONE ×2 (13:48→14:50)
[2020-03-12] MEDS ORDERED: IOVERSOL 320 50 ML VIAL PO ONE (14:51)
--- NOTE | 2020-03-12 15:18 | CT Report ---
PROCEDURE: Abdomen/Pelvis W INDICATIONS: EPIGASTRIC ABD PAIN, LT LOWER ABD PAIN CONTRAST: IV CONTRAST: Optiray 320 ml: 100 PO CONTRAST: Optiray 320 ml50 TECHNIQUE: After the administration of IV and oral contrast, 5 mm thick sections acquired from the diaphragms to the symphysis. 5 mm thick coronal and sagittal reformats were acquired. For radiation dose reducti on, the following was used: automated exposure control, adjustment of mA and/or kV according to cat ent size. COMPARISON: None. FINDINGS: Image quality: Excellent. ABDOMEN: Lung bases: Lung bases are clear. Heart size is normal. Solid organs: Liver and spleen are normal in size and enhancement. Gallbladder is surgically absent . Biliary system is non dilated. Pancreas enhances normally. No adrenal nodules. Kidneys demonstra te normal size and enhancement, without hydronephrosis. Peritoneum and bowel: Bowel loops demonstrate normal wall thickness and caliber. No free fluid or a ir. Significant fecal stasis in the colon is seen. No evidence of acute appendicitis or diverticulit is. Nodes and vessels: No retroperitoneal or mesenteric adenopathy by size criteria. Aorta and inferior vena cava are normal in size. Miscellaneous: Small umbilical hernia is seen containing fat only. PELVIS: Genitourinary: Bladder wall thickness is normal. Miscellaneous: No inguinal hernias or adenopathy. Bones: No suspicious bony lesions. No vertebral body compression fractures. Postfusion changes at L5-S1 level are seen with posterior decompression at L5-S1 level. IMPRESSION: 1. Constipation. No bowel obstruction. No abnormal bowel wall thickening. No free fluid or free air. 2. Postsurgical changes at L5-S1 level as above. Reviewed by: Fred Ta MD on 03/12/2020 3:16 PM PDT Approved by: Fred Ta MD on 03/12/2020 3:16 PM PDT Station ID: [id number]
== END 2020-03-12 13:36 | disposition home or self-care (01) ==
LOC: DI 13:35
PROVIDERS: ATTEND Family Medicine
DX: K59.00 Constipation, unspecified (principal); Z98.1 Arthrodesis status
CPT/HCPCS: 74177; Q9967

== ENCOUNTER 2020-06-21 05:18 | Emergency (ER) | payer BC ==
--- NOTE | 2020-06-21 05:35 | ED Physician Documentation ---
History of Present Illness - Stated complaint Stated Complaint: MHE/CP - Chief complaint Chief Complaint: Abd Pain - History obtained from History obtained from: Patient - History of Present Illness Timing: How many days ago (4) Pain level max: 0 Pain level now: 0 Improved by: nothing Worsened by: no exacerbating factors - Additonal information Additional information: c/o anxiety x 4 days, was gradually worsening but suddenly more sever since yesterday. no apparent inciting incident/factors. she reports rapid palpitations and mild anterior chest discomfort since yesterday as well Review of Systems Constitutional: denies: Fever, Sweats Cardiac: reports: Chest pain / pressure, Palpitations. denies: Pedal edema Respiratory: reports: Reviewed and negative GI: reports: Reviewed and negative : denies: Now EGA Psychiatric: reports: Anxiety. denies: Depressed, Suicidal, Hallucinations, Delusions PD PAST MEDICAL HISTORY - Past Medical History Cardiovascular: None Respiratory: None Endocrine/Autoimmune: Other GI: GERD, Chronic diarrhea, Hemorrhoids, Other : None HEENT: None Psych: Anxiety, Claustrophobia Musculoskeletal: Osteoarthritis, Chronic back pain, Other Derm: Other drug resistant infections - Past Surgical History Past Surgical History: Yes General: Cholecystectomy Ortho: Carpal Tunnel surgery, Spine surgery, Other Cardiovascular: Other - Present Medications Home Medications: Ambulatory Orders Medication Instructions Recorded Confirmed LORazepam [Ativan] 1 mg PO TID PRN #20 tablet 06/21/20 - Allergies Allergies/Adverse Reactions: Allergies Allergy/AdvReac Type Severity Reaction Status Date / Time doxycycline Allergy Rash Verified 06/21/20 05:29 furosemide [From Lasix] Allergy Unknown Verified 06/21/20 05:29 Penicillins Allergy Rash Verified 06/21/20 05:29 sulindac Allergy Cramps Verified 06/21/20 05:29 - Social History Does the pt smoke?: Yes Smoking Status: Current every day smoker Does the pt drink ETOH?: No Does the pt have substance abuse?: Yes - Immunizations Immunizations are current?: Yes - POLST Patient has POLST: No PD ED PE NORMAL - Vitals Vital signs reviewed: Yes - General General: Alert and oriented X 3, Well developed/nourished, Other (Appears very anxious ) - HEENT HEENT: PERRL, EOMI, Moist mucous membranes - Neck Neck: Supple, no meningeal sign - Cardiac Cardiac: No murmur - Respiratory Respiratory: No respiratory distress, Clear bilaterally - Derm Derm: Normal color, Warm and dry - Neuro Neuro: Alert and oriented X 3 PD ED PE EXPANDED - Cardiac Cardiac: Tachy, Regular Rhythm - Psych Psych: Anxious Results - Vitals Vitals: Oxygen O2 Source Room air - EKG (time done) No standard instances Rate: Rate (enter#) (122) Rhythm: Sinus tachycardia [place]: LAD Intervals: Normal [place] QRS: Normal Ischemia: Normal ST segments - Labs Labs: Laboratory Tests 06/21/20 06/21/20 06/21/20 05:30 05:30 05:30 WBC 9.8 RBC 4.77 Hgb 14.0 Hct 42.1 MCV 88.3 MCH 29.4 MCHC 33.3 RDW 13.2 Plt Count 359 MPV 9.4 Neut # (Auto) 6.7 H Lymph # (Auto) 2.3 [place] # (Auto) 0.6 Eos # (Auto) 0.1 Baso # (Auto) 0.1 Absolute Nucleated RBC 0.00 Nucleated RBC % 0.0 Sodium 140 Potassium 3.2 L Chloride 103 Carbon Dioxide 20 L Anion Gap 17.0 H BUN 13 Creatinine 0.8 Estimated GFR (MDRD) 78 L Glucose 135 H Calcium 9.6 Total Bilirubin 0.6 AST 17 ALT 52 Alkaline Phosphatase 79 Troponin I High Sens Total Protein 8.2 Albumin 4.7 Globulin 3.5 Albumin/Globulin Ratio 1.3 Lipase 25 TSH 2.02 06/21/20 05:30 WBC RBC Hgb Hct MCV MCH MCHC RDW Plt Count MPV Neut # (Auto) Lymph # (Auto) [place] # (Auto) Eos # (Auto) Baso # (Auto) Absolute Nucleated RBC Nucleated RBC % Sodium Potassium Chloride Carbon Dioxide Anion Gap BUN Creatinine Estimated GFR (MDRD) Glucose Calcium Total Bilirubin AST ALT Alkaline Phosphatase Troponin I High Sens 3.7 Total Protein Albumin Globulin Albumin/Globulin Ratio Lipase TSH PD MEDICAL DECISION MAKING - ED course Complexity details: reviewed results, re-evaluated patient, considered differential, d/w patient ED course: patient presents to ED with chief c/o of anxiety, panic (per patient), in obvious distress in that she appears very anxious. given lorazepam with good effect; on reevaluation, she is calm and reports resolution of her anxiety, chest discomfort and palpitations, and her tachycardia resolved. Departure - Departure Disposition: Home, Self Care Clinical Impression: Anxiety, Chest pain Condition: Good Instructions: ED Chest Pain Atypical Unkn Cause, ED Panic Attack Follow-Up: Jayleen Rendon DO [Primary Care Provider] - Prescriptions: LORazepam [Ativan] 1 mg PO TID PRN #20 tablet PRN Reason: Anxiety Discharge Date/Time: 06/21/20 07:50
[2020-06-21] MEDS ORDERED: LORazepam 2 MG/ML VIAL IVP STA (05:43)
[2020-06-21 06:07] LABS: BASOPHILS # (AUTO) 0.1 10^3/uL (0.0-0.1); EOSINOPHILS # (AUTO) 0.1 10^3/uL (0.0-0.7); EOSINOPHILS % (AUTO) 1.2 %; LYMPHOCYTES # (AUTO) 2.3 10^3/uL (1.5-3.5); LYMPHOCYTES % (AUTO) 23.5 %; MEAN CORPUSCULAR HEMOGLOBIN 29.4 pg (27.0-31.0); MEAN CORPUSCULAR HGB CONC 33.3 g/dL (32.0-36.0); MEAN CORPUSCULAR VOLUME 88.3 fL (81.0-99.0); MEAN PLATELET VOLUME 9.4 fL (7.9-10.8); MONOCYTES # (AUTO) 0.6 10^3/uL (0.0-1.0); MONOCYTES % (AUTO) 5.8 %; NEUTROPHILS # (AUTO) 6.7 10^3/uL (1.5-6.6); NEUTROPHILS % (AUTO) 68.1 %; PLT - PLATELET COUNT 359 10^3/uL (130-450); RED BLOOD COUNT 4.77 10^6/uL (4.20-5.40); RED CELL DISTRIBUTION WIDTH 13.2 % (12.0-15.0); WHITE BLOOD COUNT 9.8 x10^3/uL (4.8-10.8)
[2020-06-21 06:18] LABS: ALBUMIN 4.7 g/dL (3.2-5.5); ALBUMIN/GLOBULIN RATIO 1.3 (1.0-2.2); BILIRUBIN,TOTAL 0.6 mg/dL (0.2-1.0); CALCIUM 9.6 mg/dL (8.5-10.3); CREATININE 0.8 mg/dL (0.4-1.0); TOTAL PROTEIN 8.2 g/dL (6.7-8.2)
[2020-06-21 07:19] VITALS: BP 111/69
--- NOTE | 2020-06-21 08:11 | XRAY Report ---
PROCEDURE: Chest 2 View X-Ray INDICATIONS: chest pain TECHNIQUE: 2 view(s) of the chest. COMPARISON: 07/31/2016. FINDINGS: Surgical changes and devices: None. Lungs and pleura: No pleural effusions or pneumothorax. Lungs are clear. Mild bronchial wall thicke chuck noted in the right lower lung. Mediastinum: Mediastinal contours are normal. Heart size is normal. Bones and chest wall: No suspicious bony abnormalities. Soft tissues appear unremarkable. IMPRESSION: Mild right lower lung bronchiolitis. Reviewed by: Radha Shepherd MD, PhD on 06/21/2020 8:10 AM [facility] Approved by: Radha Shepherd MD, PhD on 06/21/2020 8:10 AM [facility] Station ID: [id number]
== END 2020-06-21 07:50 | disposition home or self-care (01) ==
LOC: ED 05:18
DX: F41.9 Anxiety disorder, unspecified (principal); R07.89 Other chest pain; R00.0 Tachycardia, unspecified; F17.200 Nicotine dependence, unspecified, uncomplicated
CPT/HCPCS: 36415; 71046; 83690; 84484; 93005; 96374; 99284; J2060; 80053; 84443; 85025

== ENCOUNTER 2020-06-24 16:33 | Emergency (ER) | payer BC ==
[2020-06-24] MEDS ORDERED: ONDANSETRON 4 MG/2 ML VIAL IVP STA (17:51)
[2020-06-24] MEDS ORDERED: KETAMINE 40 MG in SODIUM CHLORIDE 0.9% 100ML 100 ML IVP STA (17:51)
--- NOTE | 2020-06-24 17:54 | ED Physician Documentation ---
PD HPI MHE - Stated complaint Stated Complaint: PANIC ATTACK - Chief complaint Chief Complaint: MHE - History obtained from History obtained from: Patient - Additional information Additional information: 45-year-old woman with history of narcotic abuse although sober for 10 years and chronic anxiety presents with an exacerbation of her anxiety. She was here a few days ago with palpitations, chest tightness. She was prescribed Ativan which is helpful and is still taking it but is not quite enough. She denies suicidal or homicidal ideation to me. Declines hospitalization. Review of Systems Constitutional: reports: Reviewed and negative Eyes: reports: Reviewed and negative Ears: reports: Reviewed and negative Nose: reports: Reviewed and negative Cardiac: reports: Palpitations PD PAST MEDICAL HISTORY - Past Medical History Cardiovascular: None Respiratory: None Endocrine/Autoimmune: Other GI: GERD, Chronic diarrhea, Hemorrhoids, Other : None HEENT: None Psych: Anxiety, Claustrophobia Musculoskeletal: Osteoarthritis, Chronic back pain, Other Derm: Other drug resistant infections - Past Surgical History Past Surgical History: Yes General: Cholecystectomy Ortho: Carpal Tunnel surgery, Spine surgery, Other Cardiovascular: Other - Present Medications Home Medications: Ambulatory Orders Medication Instructions Recorded Confirmed LORazepam [Ativan] 1 mg PO TID PRN #20 tablet 06/21/20 06/24/20 Ondansetron Odt [Zofran] 4 mg TL Q6H PRN #10 tablet 06/24/20 Quetiapine Fumarate [Seroquel Xr] 50 mg PO DAILY #7 tab.er.24h 06/24/20 - Allergies Allergies/Adverse Reactions: Allergies Allergy/AdvReac Type Severity Reaction Status Date / Time doxycycline Allergy Rash Verified 06/24/20 16:48 furosemide [From Lasix] Allergy Unknown Verified 06/24/20 16:48 Penicillins Allergy Rash Verified 06/24/20 16:48 sulindac Allergy Cramps Verified 06/24/20 16:48 - Social History Does the pt smoke?: Yes Smoking Status: Current every day smoker Does the pt drink ETOH?: No Does the pt have substance abuse?: Yes - Immunizations Immunizations are current?: Yes - POLST Patient has POLST: No PD ED PE NORMAL - Vitals Vital signs reviewed: Yes - General General: Alert and oriented X 3, No acute distress - Neck Neck: Supple, no meningeal sign, No bony TTP - Cardiac Cardiac: RRR, No murmur - Respiratory Respiratory: No respiratory distress, Clear bilaterally - Abdomen Abdomen: Normal bowel sounds, Soft, Non tender - Back Back: No CVA TTP, No spinal TTP - Derm Derm: Normal color, Warm and dry - Extremities Extremities: No edema, No calf tenderness / cord - Neuro Neuro: Alert and oriented X 3, Normal speech Results - Vitals Vitals: Vital Signs - 24 hr 06/24/20 06/24/20 06/24/20 16:45 18:23 18:25 Temperature 36.3 C L Heart Rate 103 H 102 H 80 Respiratory 22 20 17 Rate Blood Pressure 167/104 H 120/94 H 132/61 H O2 Saturation 100 100 06/24/20 06/24/20 06/24/20 18:29 18:30 18:35 Temperature Heart Rate 76 87 88 Respiratory 14 18 15 Rate Blood Pressure 141/77 H 142/87 H 140/84 H O2 Saturation 96 95 100 06/24/20 06/24/20 06/24/20 18:40 18:57 19:01 Temperature Heart Rate 88 92 72 Respiratory 12 20 14 Rate Blood Pressure 138/86 H 124/84 H 142/79 H O2 Saturation 99 98 98 06/24/20 19:05 Temperature Heart Rate 74 Respiratory 12 Rate Blood Pressure 133/78 H O2 Saturation 98 Oxygen O2 Source Room air PD MEDICAL DECISION MAKING - ED course ED course: 45-year-old woman with an exacerbation of chronic anxiety. Declines hospitalization. No indication for involuntary treatment. Discussed with her that we could add a mood stabilizer/antipsychotic such as Seroquel to the Ativan and potentially do a ketamine drip here and she opted for both. 45-year-old woman with anxiety and depression presents with exacerbations of same. She was administered 40 mg of ketamine over 40 minutes with excellent improvements in her symptoms. Departure - Departure Disposition: 01 Home, Self Care Clinical Impression: Anxiety attack Depression Qualifiers: Depression Type: major depressive disorder Major depression recurrence: recurrent Active/Remission status: currently active Major depression episode severity: moderate Qualified Code(s): F33.1 - Major depressive disorder, recurrent, moderate Condition: Good Record reviewed to determine appropriate education?: Yes Instructions: ED Depression Follow-Up: Jayleen Rendon DO [Primary Care Provider] - Prescriptions: Quetiapine Fumarate [Seroquel Xr] 50 mg PO DAILY #7 tab.er.24h Ondansetron Odt [Zofran] 4 mg TL Q6H PRN #10 tablet PRN Reason: Nausea / Vomiting Comments: Report to your primary care physician in 3 days as scheduled. Bring the new prescriptions with you and you can discuss how they are helping. Return if worsening. Forms: Activity restrictions
[2020-06-24 19:23] VITALS: BP 152/95
== END 2020-06-24 19:28 | disposition home or self-care (01) ==
LOC: ED 16:33
DX: F41.9 Anxiety disorder, unspecified (principal); F33.1 Major depressive disorder, recurrent, moderate; F17.200 Nicotine dependence, unspecified, uncomplicated
CPT/HCPCS: 96374; 99284

== ENCOUNTER 2020-07-07 07:19 | Outpatient (CLI) | payer BC ==
--- NOTE | 2020-07-07 13:08 | Ultrasound Report ---
PROCEDURE: Abdomen Limited INDICATIONS: RUQ ABDOMINAL PAIN TECHNIQUE: Real-time focused scanning was performed of the abdomen, with image documentation. COMPARISON: Correlation is made with the prior CT, 03/12/2020. FINDINGS: The liver demonstrates normal size. The liver demonstrates a coarsened echotexture. No paco er lesions are detected. The gallbladder has been removed. No biliary ductal dilatation is seen. The common bile duct measures 6 mm. The visualized pancreas is within normal limits. The visualized right kidney is unremarkable. IMPRESSION: Status post cholecystectomy. No biliary dilatation is seen. Coarse liver echotexture, without focal liver abnormality seen. Reviewed by: Hiram Michaud MD on 07/07/2020 12:07 PM [facility] Approved by: Hiram Michaud MD on 07/07/2020 12:07 PM [facility] Station ID: [id number]
== END 2020-07-07 07:20 | disposition home or self-care (01) ==
LOC: DI 07:19
PROVIDERS: ATTEND Physician Assistant
DX: R10.9 Unspecified abdominal pain (principal); Z90.49 Acquired absence of other specified parts of digestive tract

== ENCOUNTER 2020-07-09 10:50 | Outpatient (CLI) | payer BC ==
--- OUTSIDE RECORDS SUMMARY | 2020-07-17 00:25 | EXTERNAL MEDICAL SUMMARY RPT | Continuity of Care Document ---
:1975 Demographics Phone Unavailable Preferred Language Bulgarian Marital Status Unknown Oriental Orthodox Affiliation Unknown Race Unknown Ethnic Group Unknown Author Organization [place] Address [address] [phone] Phone Care Team Providers Name Role Phone DO Unavailable Unavailable Scheidt Unavailable Unavailable Scheidt Unavailable Unavailable Problems date description [facility] Depression [facility] Anxiety attack [facility] Anxiety [facility] Fluid level behind tympanic [facility] Gastric ulcer [facility] Back pain [facility] Chest pain [facility] Headache [facility] Pressure in head [facility] Patient [facility] 2020-06-17 00:00:00 US ABDOMEN LIMITED [facility] [place] [facility] 2020-06-17 00:00:00 Health-related behavior [facility] [place] [facility] 2020-06-17 00:00:00 Tobacco use and exposure [facility] [place] [facility] 2020-06-17 00:00:00 Exercise [facility] [place] [facility] 2020-06-17 00:00:00 Details of drug misuse behavior [facility] [place] [facility] 2020-06-17 00:00:00 Current every day smoker [facility] [place] [facility] 2020-06-17 00:00:00 Tobacco smoking status NHIS [facility] [place] [facility] 2020-06-17 00:00:00 Total score? [facility] [place] [facility] 2020-06-21 00:00:00 Anxiety state, unspecified [facility] [place] [facility] 2020-06-21 00:00:00 Headache [facility] [place] [facility] 2020-06-21 00:00:00 Anxiety disorder, unspecified [facility] [place] [facility] 2020-06-21 00:00:00 Anxiety [facility] [place] [facility] 2020-06-21 05:18 NICOTINE DEPENDENCE, [facility] UNSPECIFIED, UNCOMPLICATED 2020-06-21 05:18 ANXIETY DISORDER, UNSPECIFIED [facility] 2020-06-21 05:18 TACHYCARDIA, UNSPECIFIED [facility] 2020-06-21 05:18 OTHER CHEST PAIN [facility] 2020-06-24 16:33 NICOTINE DEPENDENCE, [facility] UNSPECIFIED, UNCOMPLICATED 2020-06-24 16:33 MAJOR DEPRESSIVE DISORDER, [facility] RECURRENT, MODERATE 2020-06-24 16:33 ANXIETY DISORDER, UNSPECIFIED [facility] 2020-06-25 00:00:00 Major depressive disorder, [facility] recurrent episode, moderate [place] [facility] degree 2020-06-25 00:00:00 Major depressive disorder, [facility] recurrent, moderate [place] [facility] 2020-06-25 00:00:00 Recurrent depression [facility] Care [facility] 2020-06-27 00:00:00 Panic disorder without [facility] agoraphobia [facility] 2020-06-27 00:00:00 Panic disorder [episodic [facility] Primary Care paroxysmal anxiety] [facility] 2020-06-27 00:00:00 Panic disorder [facility] 2020-07-09 00:00:00 Unspecified chest pain [facility] Primary Care [facility] 2020-07-09 00:00:00 Nonspecific abnormal results of [facility] Primary Care function study of liver [facility] 2020-07-09 00:00:00 Chest pain, unspecified [facility] Primary Care [facility] 2020-07-09 00:00:00 Other specified [facility] findings of blood chemistry [facility] 2020-07-09 00:00:00 Liver function tests abnormal [facility] Care [facility] 2020-07-09 00:00:00 Health-related behavior [facility] Care [facility] 2020-07-09 00:00:00 Tobacco use and exposure [facility] 2020-07-09 00:00:00 Exercise [facility] 2020-07-09 00:00:00 Chest pain [facility] 2020-07-09 00:00:00 Details of drug misuse behavior [facility] 2020-07-09 00:00:00 Current every day smoker [facility] 2020-07-09 00:00:00 Tobacco smoking status NHIS [facility] 2020-07-09 00:00:00 Total score? [facility] 2020-07-09 11:11 NICOTINE DEPENDENCE, [facility] UNSPECIFIED, UNCOMPLICATED 2020-07-09 11:11 ANXIETY DISORDER, UNSPECIFIED [facility] 2020-07-09 11:11 CHEST PAIN, UNSPECIFIED [facility] 2020-07-09 11:11 RIGHT UPPER QUADRANT PAIN [facility] 2020-07-09 11:11 ELEVATION OF LEVELS OF LIVER [facility] TRANSAMINASE LEVELS 2020-07-09 11:11 ABNORMAL LEVELS OF OTHER SERUM [facility] ENZYMES 2020-07-09 11:11 ADVERSE EFF[facility] NEUROLEPT 2020-07-09 11:11 PERSONAL HISTORY OF OTHER [facility] DISEASES OF THE DIGESTIV 2020-07-09 11:11 ACQUIRED ABSENCE OF OTHER [facility] SPECIFIED PARTS OF DIGES 2020-07-10 00:00:00 Liver Panel [facility] 2020-07-15 00:00:00 Liver Panel [facility] 2020-07-15 00:00:00 Health-related behavior [facility] 2020-07-15 00:00:00 [facility] [place] [facility] 2020-07-15 00:00:00 Details of drug misuse behavior [facility] Primary Care [place] [facility] 2020-07-15 00:00:00 Current every day smoker [facility] [place] [facility] 2020-07-15 00:00:00 Tobacco smoking status NHIS [facility] Primary [facility] [place] [facility] 2020-07-15 00:00:00 Total score? [facility] portillo Care [place] [facility] Allergies date description facility [facility] Bee Stings [facility] AMOXICILLIN [facility] CHLORHEXIDINE [facility] CODEINE SULFATE [facility] HYDROCODONE BITARTRATE [facility] [place] OXYCODONE [facility] NO KNOWN ENVIRONMENTAL ALLERGIES [facility] UNCODED NONSCREENABLE ALLERGEN [facility] NO ALLERGY INFORMATION AVAILABLE [facility] QUINOLONES [facility] NO KNOWN ALLERGIES [facility] LATEX [facility] PEANUTS [facility] SOYBEAN [facility] MOXIFLOXACIN [facility] Penicillins [facility] Sulfa (Sulfonamide Antibiotics) [facility]ide [facility] sulindac [facility] doxycycline [facility] NO KNOWN ALLERGIES [facility] NO KNOWN ENVIRONMENTAL ALLERGIES [facility] NO ALLERGY INFORMATION AVAILABLE [facility] NO KNOWN ALLERGIES [facility] Penicillins [facility]urosemide [facility] sulindac [facility] doxycycline [facility] Criticality [facility] Sulindac [facility] Doxycycline [facility] Furosemide [facility] Medications date description facility 2020-06-21 00:00:00 null [facility] [place] [facility] 2020-06-21 00:00:00 null [facility] [place] [facility] 2020-06-21 00:00:00 LORAZEPAM [facility] [place] [facility] 2020-06-21 00:00:00 L[facility]AZEPAM [facility] [place] [facility] 2020-06-21 00:00:00 Lorazepam [facility] 2020-06-24 00:00:00 Ondansetron Odt [facility] 2020-06-24 00:00:00 Quetiapine Fumarate [facility] 2020-06-26 00:00:00 null [facility] [place] [facility] 2020-06-26 00:00:00 null [facility] [place] [facility] 2020-06-26 00:00:00 QU[facility]APINE [facility] [place] [facility] 2020-06-26 00:00:00 QU[facility]APINE [facility] [place] [facility] 2020-06-27 00:00:00 null [facility] [place] [facility] 2020-06-27 00:00:00 null [facility] [place] [facility] 2020-06-27 00:00:00 null [facility] [place] [facility] 2020-06-27 00:00:00 null [facility] [place] [facility] 2020-06-27 00:00:00 CLONAZEPAM [facility] [place] [facility] 2020-06-27 00:00:00 DULOXETINE HCL [facility] [place] [facility] 2020-06-27 00:00:00 CLONAZEPAM [facility] [place] [facility] 2020-06-27 00:00:00 DULOXETINE HCL [facility] [place] [facility] Procedures date description facility 2020-06-17 00:00:00 US ABDOMEN LIMITED [facility] [place] [facility] date description facility 2020-06-17 00:00:00 [facility] [place] [facility] date description facility 2020-06-21 00:00:00 X-ray of chest, PA and lateral views [facility] date description facility 2020-06-24 00:00:00 [facility] date description facility 2020-07-09 00:00:00 EKG Interpretation [facility] Prim portillo Care [place] [facility] date description facility 2020-07-09 00:00:00 [facility] port[facility] Care [place] [facility] Results Social History date description facility 2020-06-17 00:00:00 Current every day [facility] [place] [facility] date description facility 2020-07-09 00:00:00 Current every day smoker [facility] [place] [facility] date description facility 2020-07-15 00:00:00 Current every day smoker [facility] [place] [facility] Social History date description facility 2020-06-17 00:00:00 Current every day smoker [facility] [place] [facility] date description facility 2020-07-09 00:00:00 Current [facility] sm[facility] [place] [facility] date description facility 2020-07-15 00:00:00 Current [facility] [place] [facility] date description facility [id number]
== END 2020-07-09 10:51 | disposition critical access hospital (66) ==
LOC: EMS 10:50
PROVIDERS: ATTEND Surgery
DX: F41.9 Anxiety disorder, unspecified (principal); R07.9 Chest pain, unspecified; R10.9 Unspecified abdominal pain
CPT/HCPCS: A0425; A0427

== ENCOUNTER 2020-07-09 11:11 | Emergency (ER) | payer BC ==
[2020-07-09 11:52] LABS: BASOPHILS # (AUTO) 0.1 10^3/uL (0.0-0.1); BASOPHILS % (AUTO) 0.9 %; EOSINOPHILS % (AUTO) 0.4 %; HGB - HEMOGLOBIN 12.9 g/dL (12.0-16.0); LYMPHOCYTES % (AUTO) 8.4 %; MEAN CORPUSCULAR HEMOGLOBIN 29.6 pg (27.0-31.0); MEAN CORPUSCULAR HGB CONC 33.1 g/dL (32.0-36.0); MEAN CORPUSCULAR VOLUME 89.4 fL (81.0-99.0); MEAN PLATELET VOLUME 9.2 fL (7.9-10.8); MONOCYTES # (AUTO) 0.7 10^3/uL (0.0-1.0); MONOCYTES % (AUTO) 6.1 %; NEUTROPHILS # (AUTO) 9.5 10^3/uL (1.5-6.6); NEUTROPHILS % (AUTO) 83.9 %; PLT - PLATELET COUNT 282 10^3/uL (130-450); RED BLOOD COUNT 4.36 10^6/uL (4.20-5.40); RED CELL DISTRIBUTION WIDTH 13.1 % (12.0-15.0); WHITE BLOOD COUNT 11.3 x10^3/uL (4.8-10.8)
--- NOTE | 2020-07-09 11:53 | ED Physician Documentation ---
History of Present Illness - Stated complaint Stated Complaint: ANXIETY/CP - Chief complaint Chief Complaint: Cardiac - History obtained from History obtained from: Patient - History of Present Illness Timing: Prior to arrival - Additonal information Additional information: 45-year-old female presents emergency department for evaluation of intermittent chest pain. She reports a lot of stress and ongoing anxiety over the last few weeks. She often develops a burning pressure-like pain in her chest that radiates up her throat. She has associated nausea and vomiting when this occurs. She denies that the chest pain is exertional but really cannot attribute to when it will begin. Pt has a hx ofbarrets esophagitis and is on emaprazole. She is a smoker. Denies a history of hypertension. She is currently under the care of Dr. Rendon for anxiety and is taking clonazepam, Seroquel and Cymbalta. She does have a history of opiate drug abuse in the past. She denies cough, or hemoptysis. No unilateral leg swelling calf pain. No personal history of DVT or cancer. No recent surgery or extended travel. psh: cholecystectomy 2000 Review of Systems Constitutional: denies: Fever, Chills Eyes: reports: Reviewed and negative Ears: reports: Reviewed and negative Nose: reports: Reviewed and negative Throat: reports: Reviewed and negative Cardiac: reports: Chest pain / pressure, Palpitations. denies: Pedal edema, Calf pain Respiratory: denies: Dyspnea, Cough, Hemoptysis, Wheezing GI: reports: Abdominal Pain, Nausea, Vomiting. denies: Constipation, Diarrhea : reports: Reviewed and negative PD PAST MEDICAL HISTORY - Past Medical History Past Medical History: Yes Cardiovascular: Other Respiratory: None Neuro: None Endocrine/Autoimmune: Other GI: GERD, Chronic diarrhea, Hemorrhoids, Other CHEMICAL DEPENDENCY PROFESSIONAL: Other : None HEENT: None Psych: Anxiety, Claustrophobia Musculoskeletal: Osteoarthritis, Chronic back pain, Other Derm: Other drug resistant infections Other Past Medical History: PCOS - Past Surgical History Past Surgical History: Yes General: Cholecystectomy Ortho: Carpal Tunnel surgery, Spine surgery, Other Cardiovascular: Other - Present Medications Home Medications: Ambulatory Orders Medication Instructions Recorded Confirmed Ondansetron Odt [Zofran] 4 mg TL Q6H PRN #10 tablet 06/24/20 07/09/20 DULoxetine [Cymbalta] 30 mg PO DAILY 07/09/20 07/09/20 Quetiapine Fumarate [Seroquel Xr] 50 mg PO HS 07/09/20 07/09/20 clonazePAM [Clonazepam] 0.5 mg PO BID 07/09/20 07/09/20 - Allergies Allergies/Adverse Reactions: Allergies Allergy/AdvReac Type Severity Reaction Status Date / Time doxycycline Allergy Rash Verified 07/09/20 11:15 furosemide [From Lasix] Allergy Unknown Verified 07/09/20 11:15 Penicillins Allergy Rash Verified 07/09/20 11:15 sulindac Allergy Cramps Verified 07/09/20 11:15 - Social History Does the pt smoke?: Yes Smoking Status: Current every day smoker Does the pt drink ETOH?: No Does the pt have substance abuse?: Yes Substance Use and Type: Marijuana - Immunizations Immunizations are current?: Yes - POLST Patient has POLST: No PD ED PE EXPANDED - General General: Alert, No acute distress - Cardiac Cardiac: Regular Rate, Regular Rhythm, Radial strong equal, Cap refill < 2 sec - Respiratory Respiratory: Clear to ausultation boo. No: Distress, Labored - Abdomen Abdomen: Normal Bowel sounds, RUQ (Epigastric and right upper quadrant abdominal pain without rebound or guarding.), Epigastric - Back Back: Normal exam, Normal ROM - Extremities Extremities: Normal. No: Deformity, Tenderness, Pedal edema bilateral, Right calf TTP/cord, Left calf TTP/cord - Neuro Neuro: Alert and Oriented X 3, CNII-XII intact - GCS Eye Opening: Spontaneous Motor: Obeys Commands Verbal: Oriented Total: 15 Results - Vitals Vitals: Vital Signs - 24 hr 07/09/20 07/09/20 11:15 11:30 Temperature 36.4 C L 36.6 C Heart Rate 94 88 Respiratory 20 16 Rate Blood Pressure 142/95 H 147/105 H O2 Saturation 99 99 Oxygen O2 Source Room air - EKG (time done) 1115 Rate: Rate (enter#) (92) Rhythm: NSR [place]: Normal Intervals: Normal [place] QRS: Poor R wave progression Ischemia: Normal ST segments Compare to prior EKG: Unchanged from prior EKG Computer interpretation: Agree with computer - Labs Labs: Laboratory Tests 07/09/20 07/09/20 07/09/20 11:42 11:42 11:42 WBC 11.3 H RBC 4.36 Hgb 12.9 Hct 39.0 MCV 89.4 MCH 29.6 MCHC 33.1 RDW 13.1 Plt Count 282 MPV 9.2 Neut # (Auto) 9.5 H Lymph # (Auto) 1.0 L Bowman # (Auto) 0.7 Eos # (Auto) 0.0 Baso # (Auto) 0.1 Absolute Nucleated RBC 0.00 Nucleated RBC % 0.0 Sodium 141 Potassium 3.4 L Chloride 106 Carbon Dioxide 27 Anion Gap 8.0 BUN 7 Creatinine 0.8 Estimated GFR (MDRD) 78 L Glucose 105 H Calcium 9.0 Total Bilirubin 0.7 AST 178 H ALT 253 H Alkaline Phosphatase 60 Troponin I High Sens < 2.3 L Total Protein 6.9 Albumin 3.9 Globulin 3.0 Albumin/Globulin Ratio 1.3 Lipase 20 L - Rads (name of study) CT abd Radiology: Final report received (No acute inflammatory process identified. No focal hepatic lesion seen. No free fluid. Post cholecystectomy. Low-density left adrenal nodule measuring 3.4 cm slightly increased in size compared to 2017) PD MEDICAL DECISION MAKING - ED course Complexity details: reviewed results, re-evaluated patient, considered differential, d/w patient ED course: 45-year-old female presents to the emergency department for evaluation of chest pain, anxiety, and right upper quadrant abdominal pain. She is referred to the ED from her primary care office at this morning for evaluation of chest pain. Her EKG today is sinus without ischemic changes. High-sensitivity troponin is negative. Chest x-ray does not show any acute findings. She should have an outpatient stress test/cardiac echo. Heart score today is 2. low risk for MACE She has reported a history of Anna's esophagitis as well as recent right upper quadrant abdominal pain. An ultrasound completed 2 days ago did not show findings of biliary dilation however we do note a marked rise in her LFTs today. There is no alk phos and bilirubin elevation. She did have an US completed as an outpatient 2 days ago that not show any findings c/w obstruction. A CT of the abdomen was completed and did not show any findings consistent with obstruction or lesions within the liver itself. Due to the marked rise in transaminases a medication review was undertaken. In the last 2 weeks she has begun taking Seroquel for control of her anxiety. This is likely causing the LFT changes. Omeprazole could also be indicated but she has been on this medication for nearly 20 years without a previous concern. These findings were discussed with the patient at length. She is advised to stop of the Seroquel. Patient will follow up with her primary care Dr. Jayleen Rendon. She should have her LFTs rechecked within 1 week. An acute hepatitis panel is pending but we will not have those results today. Emergent and worrisome return precautions discussed Departure - Departure Disposition: 01 Home, Self Care Clinical Impression: RUQ abdominal pain, Elevated LFTs, Anxiety, Medication side effect Condition: Stable Record reviewed to determine appropriate education?: Yes Follow-Up: Jayleen Rendon DO [Primary Care Provider] - Within 1 week Comments: Beti you are seen today for upper abdominal pain and chest pain. Your EKG and labs do not show concerns with your heart today. However you should continue to follow-up with cardiology as an outpatient. They may want to do an outpatient stress test or place a Holter monitor. As we discussed your liver function tests are elevated today. The CT of your abdomen and the ultrasound completed recently did not show any worrisome findings. But as we discussed there is concerned that the new medication Seroquel that was started for anxiety may be contributing to the liver function tests rise. Please stop taking the Seroquel at this time. I would like you to have your li kathrin function tests repeated within 1 week. Discuss this ED visit with Dr. Rendon. If at any point you are having worsening abdominal pain, your skin begins to turn yellow or you develop fevers please return to the ER for a second look.
--- NOTE | 2020-07-09 12:01 | XRAY Report ---
PROCEDURE: Chest 1 View X-Ray INDICATIONS: Chest pain TECHNIQUE: One view of the chest was acquired. COMPARISON: 06/21/2020 FINDINGS: Surgical changes and devices: None. Lungs and pleura: No pleural effusions or pneumothorax. Lungs are clear. Mediastinum: Mediastinal contours appear normal. Heart size is normal. Bones and chest wall: No suspicious bony lesions. Overlying soft tissues appear unremarkable. IMPRESSION: No acute cardiopulmonary process demonstrated radiographically. Reviewed by: Neftali Joseph MD on 07/09/2020 12:00 PM PST Approved by: Neftali Joseph MD on 07/09/2020 12:00 PM PST Station ID: [id number]
[2020-07-09 12:07] LABS: ALBUMIN 3.9 g/dL (3.2-5.5); ALBUMIN/GLOBULIN RATIO 1.3 (1.0-2.2); BILIRUBIN,TOTAL 0.7 mg/dL (0.2-1.0); CREATININE 0.8 mg/dL (0.4-1.0); POTASSIUM 3.4 mmol/L (3.5-5.0); TOTAL PROTEIN 6.9 g/dL (6.7-8.2)
[2020-07-09] MEDS ORDERED: IOVERSOL 320 100 ML VIAL IVP ONE ×2 (12:45→13:51)
--- NOTE | 2020-07-09 13:41 | CT Report ---
PROCEDURE: Abdomen/Pelvis W INDICATIONS: rising LFT's; hx of cholecystectomy; CONTRAST: IV CONTRAST: Optiray 320 ml: 100 PO CONTRAST: *NO PO CONTRAST TECHNIQUE: After the administration of intravenous contrast, 5 mm thick sections acquired from the diaphragms to the symphysis. 5 mm thick coronal and sagittal reformats were acquired. For radiation dose reducti on, the following was used: automated exposure control, adjustment of mA and/or kV according to cat ent size. COMPARISON: CT abdomen and pelvis 03/12/2020, 04/07/2017. FINDINGS: Image quality: Excellent. ABDOMEN: Lung bases: Minimal bibasilar atelectasis. No pleural effusion. Heart size is normal. Solid organs: Liver and spleen are normal in size and enhancement. No focal lesion seen. Gallbladde r is surgically absent. Biliary system is non dilated. Pancreas enhances normally. Left adrenal nod ule measuring 3.4 x 2.3 cm, (09/29), remotely 2.7 x 2.3 cm in 2017. Kidneys demonstrate normal size a nd enhancement, without hydronephrosis. Peritoneum and bowel: Bowel loops demonstrate normal wall thickness and caliber. Prominent stool in the colon. Normal appendix. No free fluid or air. Nodes and vessels: No retroperitoneal or mesenteric adenopathy by size criteria. Aorta and inferior vena cava are normal in size. Miscellaneous: Rectus diastases. Suspect tiny fat-containing. Local hernia.. Clips in the region of the left lower rectus musculature. PELVIS: Genitourinary: Bladder is decompressed limiting evaluation. Uterus is within normal limits. Tubal li gation clips. Miscellaneous: No inguinal hernias or adenopathy. Bones: No suspicious bony lesions. L5-S1 anterior fixation hardware and intervertebral body spacer. No vertebral body compression fractures. IMPRESSION: 1. No acute inflammatory process identified. No focal hepatic lesions seen. No free fluid. 2. Postcholecystectomy. 3. Low-density left adrenal nodule measuring 3.4 cm. This is slightly increased in size compared to 2 017. This most likely represents an adrenal adenoma but is incompletely characterized on this exam. I f clinically indicated this can be further evaluated with adrenal protocol washout CT or MRI with in/ out of phase imaging. Reviewed by: Terell Espino MD on 07/09/2020 12:40 PM [facility] Approved by: Terell Espino MD on 07/09/2020 12:40 PM [facility] Station ID: [id number]
[2020-07-09 14:13] VITALS: BP 131/79
[2020-07-10 12:53] LABS: HEPATITIS A IGM NON-REACTIVE (NON-REACTIVE); HEPATITIS B CORE ANTIBODY IGM NON-REACTIVE (NON-REACTIVE); HEPATITIS B SURFACE ANTIGEN NON-REACTIVE (NON-REACTIVE); HEPATITIS C ANTIBODY NON-REACTIVE (NON-REACTIVE)
--- OUTSIDE RECORDS SUMMARY | 2020-07-17 00:14 | EXTERNAL MEDICAL SUMMARY RPT | Continuity of Care Document ---
:1975 Demographics Phone Unavailable Preferred Language Bengali Marital Status Unknown Cheondoism Affiliation Unknown Race Unknown Ethnic Group Unknown Author Organization [place] Address [address] [phone] Phone Care Team Providers Name Role Phone DO Unavailable Unavailable Scheidt Unavailable Unavailable Scheidt Unavailable Unavailable Problems date description [facility] An[facility] attack [facility] Anxiety [facility] Fluid level behind tympanic [facility] membrane Gastric ulcer [facility] Back pain [facility] Chest pain [facility] Headache [facility] Pressure in head [facility] 2020-06-17 00:00:00 US ABDOMEN LIMITED [facility] 2020-06-17 00:00:00 Health-related behavior [facility] 2020-06-17 00:00:00 Tobacco [facility] and exposure [facility] 2020-06-17 00:00:00 Exercise [facility] Prim [facility] [place] [facility] 2020-06-17 00:00:00 Details of drug misuse behavior [facility] [place] 2020-06-17 00:00:00 Current every day smoker [facility] 2020-06-17 00:00:00 Tobacco [facility] [place] 2020-06-17 00:00:00 Total score? [facility] [place] 2020-06-21 00:00:00 Anxiety state, unspecified [facility] 2020-06-21 00:00:00 Headache [facility] 2020-06-21 00:00:00 Anxiety disorder, unspecified [facility] 2020-06-21 00:00:00 Anxiety [facility] 2020-06-21 05:18 NICOTINE DEPENDENCE, [facility] UNSPECIFIED, UNCOMPLICATED 2020-06-21 05:18 ANXIETY DISORDER, UNSPECIFIED [facility] 2020-06-21 05:18 TACHYCARDIA, UNSPECIFIED [facility] 2020-06-21 05:18 OTHER CHEST PAIN [facility] 2020-06-24 16:33 NICOTINE DEPENDENCE, [facility] UNSPECIFIED, UNCOMPLICATED 2020-06-24 16:33 MAJOR DEPRESSIVE DISORDER, [facility] RECURRENT, MODERATE 2020-06-24 16:33 ANXIETY DISORDER, UNSPECIFIED [facility] 2020-06-25 00:00:00 Major depressive disorder, [facility] recurrent episode, moderate [facility] degree 2020-06-25 00:00:00 Major depressive disorder, [facility] recurrent, moderate [facility] 2020-06-25 00:00:[address] [facility] Care [facility] 2020-06-27 00:00:[address] [facility] agoraphobia [facility] 2020-06-27 00:00:00 Panic disorder [episodic [facility] paroxysmal anxiety] [facility] 2020-06-27 00:00:[address] [facility] 2020-07-09 00:00:[address] [facility] 2020-07-09 00:00:00 Nonspecific abnormal results of [facility] function study of liver [facility] 2020-07-09 00:00:00 Chest pain, unspecified [facility] 2020-07-09 00:00:00 Other specified [facility] findings of blood chemistry [facility] 2020-07-09 00:00:00 Liver function tests abnormal [facility] Care [facility] 2020-07-09 00:00:00 Health-related behavior [facility] Care [facility] 2020-07-09 00:00:00 Tobacco use and exposure [facility] 2020-07-09 00:00:[address] [facility] 2020-07-09 00:00:[address] [facility] 2020-07-09 00:00:00 Details of drug misuse behavior [facility] 2020-07-09 00:00:00 Current every day smoker [facility] 2020-07-09 00:00:00 Tobacco smoking status NHIS [facility] 2020-07-09 00:00:00 Total score? [facility] 2020-07-09 11:11 NICOTINE DEPENDENCE, [facility] UNSPECIFIED, UNCOMPLICATED 2020-07-09 11:11 ANXIETY DISORDER, UNSPECIFIED [facility] 2020-07-09 11:11 CHEST PAIN, UNSPECIFIED [facility] 2020-07-09 11:11 RIGHT UPPER QUADRANT PAIN [facility] 2020-07-09 11:11 ELEVATION OF LEVELS OF LIVER [facility] TRANSAMINASE LEVELS 2020-07-09 11:11 ABNORMAL LEVELS OF OTHER SERUM [facility] ENZYMES 2020-07-09 11:11 ADVERSE EFFECT OF [facility] [place] ANTIPSYCHOTICS AND NEUROLEPT 2020-07-09 11:11 PERSONAL HISTORY OF OTHER [facility] DISEASES OF THE DIGESTIV 2020-07-09 11:11 ACQUIRED ABSENCE OF OTHER [facility] SPECIFIED PARTS OF DIGES 2020-07-10 00:00:[address] [facility] 2020-07-15 00:00:[address] [facility] 2020-07-15 00:00:00 Health-related behavior [facility] 2020-07-15 00:00:00 [facility] 2020-07-15 00:00:00 Details of drug misuse behavior [facility] [place] 2020-07-15 00:00:00 Current every day smoker [facility] 2020-07-15 00:00:00 Tobacco smoking status [facility]IS [facility] 2020-07-15 00:00:00 Total score? [facility] port[facility] Care [place] Allergies date description facility [facility] Bee Stings [facility] AMOXICILLIN [facility] CHLORHEXIDINE [facility] CODEINE SULFATE [facility] HYDROCODONE BITARTRATE [facility] edical [place] OXYCODONE [facility] NO KNOWN ENVIRONMENTAL ALLERGIES [facility] UNCODED NONSCREENABLE ALLERGEN [facility] NO ALLERGY INFORMATION AVAILABLE [facility] QUINOLONES [facility] NO KNOWN ALLERGIES [facility] LATEX [facility] PEANUTS [facility] SOYBEAN [facility] MOXIFLOXACIN [facility] Penicillins [facility] Sulfa (Sulfonamide Antibiotics) [facility] NO KNOWN ALLERGIES [facility] NO KNOWN ENVIRONMENTAL ALLERGIES [facility] NO ALLERGY INFORMATION AVAILABLE [facility] NO KNOWN ALLERGIES [facility]icillins [facility]indac [facility] Criticality [facility] Sulindac [facility] Doxycycline [facility] Furosemide [facility] Medications date description facility 2020-06-21 00:00:00 null [facility] 2020-06-21 00:00:00 null [facility] 2020-06-21 00:00:00 LORAZEPAM [facility] 2020-06-21 00:00:00 LORAZEPAM [facility] 2020-06-21 00:00:00 Lorazepam [facility] 2020-06-24 00:00:[address] [facility] 2020-06-24 00:00:00 [facility]apine [facility]ate [facility] 2020-06-26 00:00:00 null [facility] 2020-06-26 00:00:00 null [facility] 2020-06-26 00:00:00 [facility]INE [facility] [place] 2020-06-26 00:00:00 [facility]INE [facility] fl[facility] [place] 2020-06-27 00:00:00 null [facility] [place] 2020-06-27 00:00:00 null [facility] 2020-06-27 00:00:00 null [facility] [place] 2020-06-27 00:00:00 null [facility] [place] 2020-06-27 00:00:00 CLONAZEPAM [facility] 2020-06-27 00:00:00 DULOXETINE HCL [facility] 2020-06-27 00:00:00 CLONAZEPAM [facility] 2020-06-27 00:00:00 DULOXETINE HCL [facility] Procedures date description facility 2020-06-17 00:00:00 US ABDOMEN LIMITED [facility] date description facility 2020-06-17 00:00:00 [facility] date description facility 2020-06-21 00:00:00 X-ray of chest, PA and lateral views [facility] date description facility 2020-06-24 00:00:00 [facility] date description facility 2020-07-09 00:00:[address] [facility] date description facility 2020-07-09 00:00:00 [facility] port[facility] Care [facility] Results Social History date description facility 2020-06-17 00:00:00 Current [facility] day [facility] date description facility 2020-07-09 00:00:00 Current [facility] day smoker [facility] date description facility 2020-07-15 00:00:00 Current [facility] day smoker [facility] Social History date description facility 2020-06-17 00:00:00 Current every day smoker [facility] date description facility 2020-07-09 00:00:00 Current [facility] day sm[facility] date description facility 2020-07-15 00:00:00 Current [facility] day sm[facility] date description facility [id number]
== END 2020-07-09 14:13 | disposition home or self-care (01) ==
LOC: EDUNIT# → ED 11:11
DX: R10.11 Right upper quadrant pain (principal); R07.9 Chest pain, unspecified; R74.8 Abnormal levels of other serum enzymes; R74.01 Elevation of levels of liver transaminase levels; T43.595A Adverse effect of other antipsychotics and neuroleptics, initial encounter; F41.9 Anxiety disorder, unspecified; Z90.49 Acquired absence of other specified parts of digestive tract; Z87.19 Personal history of other diseases of the digestive system; F17.200 Nicotine dependence, unspecified, uncomplicated
CPT/HCPCS: 36415; 71045; 74177; 80053; 80074; 83690; 84484; 85025; 93005; 99284; Q9967

== ENCOUNTER 2020-09-05 15:22 | Outpatient (CLI) | payer BC ==
[2020-09-05 16:19] LABS: CORTISOL 4.7 ug/dL
[2020-09-05 16:22] LABS: THYROID STIMULATING HORMONE 1.29 uIU/mL (0.34-5.60)
[2020-09-05 16:24] LABS: FREE T3 3.23 pg/mL (2.5-3.9)
[2020-09-05 16:25] LABS: FREE T4 (FREE THYROXINE) 0.99 ng/dL (0.58-1.64)
[2020-09-11 16:36] LABS: ADRENOCORTICOTROP HORM ACTH <5 pg/mL (6-50)
== END 2020-09-05 15:23 | disposition home or self-care (01) ==
LOC: LAB 15:22
PROVIDERS: ATTEND Internal Medicine Cardiovascular Disease
DX: I10 Essential (primary) hypertension (principal); R07.9 Chest pain, unspecified; R07.2 Precordial pain; D35.02 Benign neoplasm of left adrenal gland
CPT/HCPCS: 36415; 82024; 82088; 82384; 82533; 84244; 84439; 84443; 84481

== ENCOUNTER 2020-12-28 10:45 | Outpatient (CLI) | payer BC | END 2020-12-28 23:59 | disposition home or self-care (01) | LOC: LAB 10:45 | PROVIDERS: ATTEND Internal Medicine Cardiovascular Disease | DX: D35.02 Benign neoplasm of left adrenal gland (principal); I10 Essential (primary) hypertension | CPT/HCPCS: 81599; 82384; 82570 ==

== ENCOUNTER 2024-02-03 07:02 | Outpatient (CLI) | payer OTHER ==
--- NOTE | 2024-02-03 13:13 | XRAY Report ---
PROCEDURE: Foot 3+V RT INDICATIONS: HEEL PAIN,RIGHT TECHNIQUE: 3 views of the foot were acquired. COMPARISON: None. FINDINGS: Bones: No fractures or dislocations. No suspicious bony lesions. Plantar calcaneal enthesophyte. Soft tissues: No tibiotalar joint effusion. Achilles tendon appears normal. IMPRESSION: Plantar calcaneal enthesophyte. Reviewed by: Miguel Ángel Up MD on 02/03/2024 1:11 PM PDT Approved by: Miguel Ángel Up MD on 02/03/2024 1:11 PM PDT Station ID: [id number]
== END 2024-02-03 07:03 | disposition home or self-care (01) ==
LOC: DI 07:02
PROVIDERS: ATTEND Physician Assistant Medical
DX: M77.31 Calcaneal spur, right foot (principal)